=== PATIENT | male | born 1950 | race African-American/Black ===

== ENCOUNTER 2021-06-30 05:59 | Emergency (ER) | payer OTHER ==
--- NOTE | 2021-06-30 07:23 | RAD REPORT ---
EXAM DESCRIPTION: RAD - Chest Single View - 06/30/2021 7:03 am CLINICAL HISTORY: Tachycardia COMPARISON: Chest Pa And Lat (2 Views) dated 05/08/2020; Chest Single View dated 03/04/2016; CHEST PA AND LAT 2 VIEW dated 03/31/2011 FINDINGS: Lines: None. Lungs: No evidence of edema or pneumonia. Pleural: No significant pleural effusions or pneumothorax. Cardiac: Cardiomegaly. Atherosclerosis. Bones: No acute fractures. Other: IMPRESSION: No acute cardiopulmonary disease.
[2021-06-30] MEDS ORDERED: NA CHLORIDE 0.9% 1,000 ML ONE ×2 (07:46→09:52)
[2021-06-30] MEDS ORDERED: METOPROLOL TARTRATE 5 MG/5 ML INJ IV ONE (07:46)
[2021-06-30 07:50] LABS: Lymphocytes % 7.3 % (15.3-44.8); MPV 9.2 fL (7.6-11.3); RBC Red Blood Cell Count 3.15 M/uL (4.33-5.43)
[2021-06-30 07:59] LABS: Protime INR 1.01
[2021-06-30 08:42] LABS: Magnesium 1.6 mg/dL (1.8-2.4); Troponin (Emerg Dept Use Only) 0.03 ng/mL (0.0-0.045)
[2021-06-30 09:04] LABS: Albumin 3.7 g/dL (3.4-5.0); Bilirubin Direct 0.2 mg/dL (0-0.2); Bilirubin Total 0.4 mg/dL (0.2-1.0); Platelet Estimate ADEQ; Protein, Total 7.7 g/dL (6.4-8.2)
[2021-06-30 09:05] LABS: Blood Morphology Comment NOT SEEN (NOT SEEN)
[2021-06-30 09:08] LABS: Blood O2 Saturation 94.6 % (92-98.5)
[2021-06-30 09:10] LABS: Arterial Blood Carboxyhemoglob 0.3 % (0-1.5); Blood Gas Oxyhemoglobin 92.6 % (94-97)
[2021-06-30] MEDS ORDERED: ENOXAPARIN 80 MG/0.8 ML SQ ONE (09:52)
[2021-06-30] MEDS ORDERED: MAGNESIUM SULFATE 1 gm IVPB 1 GM/100 ML BAG IV ONE (09:52)
--- NOTE | 2021-06-30 09:57 | EDPHYS ---
Physician Documentation [facility] Name: Rell Tucker Jr Age: 71 yrs Sex: Male : 1950 Arrival Date: 06/30/2021 Time: 06:04 Bed 20 Private MD: ED Physician Mark Wen HPI: 06/30 06:59 This 71 yrs old Black Male presents to ER via EMS with complaints of Hypoglycemia. pm1 06:59 The patient or guardian reports hypoglycemia, that was potentially precipitated by not pm1 eating last night and took his metformin, Treatment prior to arrival includes: EMS administered D50, administered glucagon, checked blood sugar on arrival, which was 20, after treatment, the blood sugar was 159. Onset: The symptoms/episode began/occurred this morning. Associated signs and symptoms: Pertinent positives: None. Current symptoms: In the emergency department the patient's symptoms have resolved, the patient is alert and fully oriented, has normal speech, has normal responsiveness, has no confusion. The patient has not recently seen a physician, the patient's primary care provider is Dr. Dr. Zuluaga. Patient was watching the football games last night and drinking alcohol. Took his metformin and iron supplement last night. Did not eat dinner. EMS toned out for AMS. Found patient hypoglycemic on scene with finger stick 20. Oral glucose not effective, and then given 1 amp D50 and BS 159 post treatment. EMS reports heart rate between 70 to 170, no EKG in route. Historical: - Allergies: 06:30 No Known Allergies; bb - PMHx: 06:30 Diabetes mellitus; bb - Immunization history:: Adult Immunizations up to date. - Social history:: Smoking status: Patient denies any tobacco usage or history of. Patient/guardian denies using alcohol. ROS: 07:29 Constitutional: Negative for fever, chills, and weight loss, Cardiovascular: Negative pm1 for chest pain, palpitations, and edema, Respiratory: Negative for shortness of breath, cough, wheezing, and pleuritic chest pain, Abdomen/GI: Negative for abdominal pain, nausea, vomiting, diarrhea, and constipation, Back: Negative for injury and pain, MS/Extremity: Negative for injury and deformity, Skin: Negative for injury, rash, and discoloration, Neuro: Negative for headache, weakness, numbness, tingling, and seizure. 07:29 Eyes: Negative for injury, pain, redness, and discharge, ENT: Negative for injury, pain, and discharge. 07:29 All other systems are negative. Exam: 07:29 Constitutional: This is a well developed, well nourished patient who is awake, alert, pm1 and in no acute distress. Head/Face: Normocephalic, atraumatic. 07:29 Skin: Warm, dry with normal turgor. Normal color with no rashes, no lesions, and no evidence of cellulitis. MS/ Extremity: Pulses equal, no cyanosis. Neurovascular intact. Full, normal range of motion. 07:29 Eyes: Exam is negative for acute changes, Periorbital structures: appear normal, Pupils: no acute changes, Extraocular movements: no acute changes, Conjunctiva: no acute changes, no injection, Sclera: no acute changes, icterus, is not appreciated. 07:29 ENT: Exam is negative for acute changes, Mouth: no acute changes, Lips: normal, moist, Oral mucosa: normal, pink and intact, moist. 07:29 Cardiovascular: Rate: tachycardic, Rhythm: irregular, Pulses: no pulse deficits are appreciated, Heart sounds: normal, normal S1and S2, Edema: is not appreciated. 07:29 Respiratory: Exam negative for acute changes, the patient does not display signs of respiratory distress, Respirations: normal, Breath sounds: are clear throughout. 07:29 Abdomen/GI: Inspection: abdomen appears normal, Palpation: abdomen is soft and non-tender, in all quadrants. 07:29 Neuro: Exam negative for acute changes, Orientation: is normal, Mentation: is normal, Motor: is normal, moves all fours. Vital Signs: 07:30 BP 102 / 74; Pulse 150; Resp 15; Pulse Ox 99% on R/A; ww 07:45 BP 107 / 67; Pulse 153; Resp 15; Pulse Ox 98% on R/A; ww 08:15 BP 102 / 65; Pulse 92; Resp 18; Pulse Ox 100% on R/A; ww 08:45 BP 109 / 76; Pulse 89; Resp 19; Pulse Ox 99% on R/A; ww 09:00 BP 114 / 75; Pulse 88; Resp 22; Pulse Ox 100% on R/A; ww 10:00 BP 114 / 75; Pulse 88; Resp 22; Pulse Ox 100% on R/A; ww 10:30 BP 119 / 77; Pulse 86; Resp 22; Pulse Ox 99% on R/A; ww 11:30 BP 117 / 72; Pulse 86; Resp 24; Pulse Ox 98% on R/A; ww 12:30 BP 120 / 76; Pulse 98; Resp 16; Pulse Ox 96% on R/A; ww 13:00 BP 108 / 72; Pulse 91; Resp 23; Pulse Ox 96% on R/A; ww 13:17 Temp 98.2(O); dh3 14:00 BP 125 / 75; Pulse 92; Resp 27; Pulse Ox 95% on R/A; ww 15:00 BP 134 / 78; Pulse 90; Resp 24; Pulse Ox 95% on R/A; ww 16:00 BP 144 / 86; Pulse 95; Resp 22; Pulse Ox 94% on R/A; ww 18:37 BP 139 / 87; Pulse 95; Resp 27; Temp 99.2; Pulse Ox 98% on R/A; ww 19:45 BP 111 / 60; Pulse 92; Resp 22; Pulse Ox 94% on R/A; lp1 21:15 BP 108 / 62; Pulse 90; Resp 22; Temp 99.5(O); Pulse Ox 94% on R/A; lp1 MDM: 06:46 Patient medically screened. pm1 09:53 Data reviewed: vital signs. Data interpreted: Pulse oximetry: on room air is 95 %. pm1 Interpretation: normal. Counseling: I had a detailed discussion with the patient and/or guardian regarding: the historical points, exam findings, and any diagnostic results supporting the discharge/admit diagnosis, lab results, radiology results, the need for further work-up and treatment in the hospital. 10:15 Physician consultation: Jeffry Ray regarding admission, patient's condition, would pm1 like consultation with Dr. ARIANNA Morin, would like further tests performed, CT scan. 11:02 Physician consultation: Alvin Morin MD left message. pm1 11:48 Physician consultation: Alvin Morin MD left message. pm1 12:24 Physician consultation: Jeffry Ray after a discussion of the case, a recommendation pm1 for transfer for higher level of care is made, Sodium bicarbonate 2 amp IVP now, D5 + Sodium bicarbonate 2 amp at 125 mL for correction of pH. Repeat blood gases in a few hours. 12:57 ED course: Discussed repeat ABG with Attending, Dr. Morse. Patient improved with NS, pm1 1000 mL bolus and 125 mL/hr. Does not recommend patient get sodium bicarbonate 2 amp IVP or drip as recommended by Dr. Ray. 13:33 Physician consultation: MD Waldrop regarding regarding transfer, patient's condition, pm1 Will require ICU admission. Recommends Lactate, UDS, tylenol level, Bicarb drip. 16:43 ED course: No ICU capacity at [facility], [facility] system, [facility] system. pm1 Will continue to manage patient's acidosis until patient can be transferred or admitted. 17:42 Physician consultation: Prudence Haider MD regarding admission, Would like CPK and ABG pm1 prior to decision to admit versus transfer due to speciality, No GI available. 18:25 Physician consultation: MD Pressley regarding regarding transfer, to [facility]. and pm1 will see patient. 18:47 Physician consultation: Eliazar Rodas DO Informed him that the patient is not staying pm1 in the hospital here due to concerns for need of GI. He will follow-up with the patient upon discharge. 06/30 06:16 Order name: Basic Metabolic Panel; Complete Time: 09:17 pm1 06/30 06:16 Order name: CBC with Diff; Complete Time: 09:06 pm1 06/30 06:16 Order name: Hepatic Function; Complete Time: 09:17 pm1 06/30 06:16 Order name: Lipase; Complete Time: 09:17 pm1 06/30 06:47 Order name: Magnesium pm1 06/30 06:47 Order name: NT PRO-BNP; Complete Time: 08:49 pm1 06/30 06:47 Order name: PT-INR; Complete Time: 08:34 pm1 06/30 06:47 Order name: Troponin (emerg Dept Use Only); Complete Time: 08:49 pm1 06/30 06:48 Order name: Magnesium; Complete Time: 08:49 EDMS 06/30 06:54 Order name: Urine Drug Screen; Complete Time: 13:30 pm1 06/30 06:54 Order name: ETOH Level; Complete Time: 09:37 pm1 06/30 06:54 Order name: TSH; Complete Time: 10:31 pm1 06/30 06:55 Order name: ABG Arterial Blood Gas; Complete Time: 09:17 EDMS 06/30 07:40 Order name: Glucose, Ancillary Testing; Complete Time: 08:34 EDMS 06/30 09:04 Order name: Manual Differential; Complete Time: 09:06 EDMS 06/30 09:08 Order name: COVID-19/FLU A+B (Document "Date of Onset" if Symptomatic) pm1 06/30 09:08 Order name: COVID-19/FLU A+B; Complete Time: 10:45 EDMS 06/30 11:59 Order name: Urine Dipstick-Ancillary; Complete Time: 12:13 EDMS 06/30 12:17 Order name: BMP; Complete Time: 13:30 pm1 06/30 12:49 Order name: ABG; Complete Time: 13:30 pm1 06/30 13:32 Order name: Lactate; Complete Time: 16:25 pm1 06/30 13:55 Order name: Tylenol Level; Complete Time: 16:25 pm1 06/30 15:32 Order name: Glucose, Ancillary Testing; Complete Time: 15:42 EDMS 06/30 16:26 Order name: CMP; Complete Time: 17:07 pm1 06/30 16:45 Order name: Glucose, Ancillary Testing; Complete Time: 16:47 EDMS 06/30 16:54 Order name: ABG Arterial Blood Gas; Complete Time: 17:37 EDMS 06/30 17:42 Order name: CPK; Complete Time: 18:30 pm1 06/30 06:16 Order name: IV Saline Lock; Complete Time: 07:50 pm06/30 06:16 Order name: Labs collected and sent; Complete Time: 07:50 pm1 06/30 06:16 Order name: Diet Regular; Complete Time: 06:17 pm1 06/30 06:47 Order name: XRAY Chest (1 view); Complete Time: 08:34 pm1 06/30 06:47 Order name: EKG; Complete Time: 06:48 pm1 06/30 06:47 Order name: Cardiac monitoring; Complete Time: 07:12 pm1 06/30 06:47 Order name: EKG - Nurse/Tech; Complete Time: 07:12 pm1 06/30 06:47 Order name: IV Saline Lock; Complete Time: 07:12 pm06/30 06:47 Order name: Labs collected and sent; Complete Time: 07:50 pm06/30 06:47 Order name: O2 Per Protocol; Complete Time: 07:12 pm06/30 06:47 Order name: O2 Sat Monitoring; Complete Time: 07:12 pm06/30 06:53 Order name: Glucose Level; Complete Time: 07:50 pm06/30 06:54 Order name: Urine Dipstick-Ancillary (obtain specimen); Complete Time: 11:54 pm06/30 09:19 Order name: EKG - Nurse/Tech; Complete Time: 09:38 pm1 06/30 10:13 Order name: CT Abd/Pelvis - Without Contrast; Complete Time: 10:57 pm1 06/30 17:42 Order name: ABG; Complete Time: 18:11 pm1 06/30 21:26 Order name: Glucose, Ancillary Testing; Complete Time: 18:02 EDMS Administered Medications: 18:41 Discontinued: NS 0.9% 1000 ml IV at 125 ml/hr continuous ww 18:40 Discontinued: D5W 1000 ml, Sodium Bicarbonate 100 mEq IV at 125 ml/hr continuous ww 07:50 Drug: NS 0.9% 1000 ml Route: IV; Rate: 1000 ml; Site: left antecubital; ww 08:00 Drug: Lopressor (metoprolol) 5 mg Route: IVP; Site: left antecubital; ww 10:14 Drug: NS 0.9% 1000 ml Route: IV; Rate: 125 ml/hr; Site: left antecubital; ww 10:15 Drug: Magnesium Sulfate 1 grams Route: IVPB; Infused Over: 1 hrs; Site: left ww antecubital; 18:42 Follow up: Response: No adverse reaction; IV Status: Completed infusion ww 10:15 Not Given (Patient Refused; educated patient on medication, Logan barrera): Lovenox ww (enoxaparin) 1 mg/kg Sub-Q once 11:25 Drug: Lovenox (enoxaparin) 70 mg Route: Sub-Q; Site: right upper abdomen; ww 18:41 Follow up: Response: No adverse reaction ww 13:18 Not Given (KESHIA Ford verbally cancelled orderr): Sodium Bicarbonate 2 amp IVP once; ww (100 mL); equals 100 mEq 13:18 Not Given (Logan [employer] verbally cancelled orderr): D5W 1000 ml, Sodium Bicarbonate 100 ww mEq IV at 125 ml/hr continuous 14:30 Drug: D5W 1000 ml, Sodium Bicarbonate 100 mEq Route: IV; Rate: 125 ml/hr; Site: left ww antecubital; 15:30 Drug: Sodium Bicarbonate 50 mEq Route: IVP; Site: left antecubital; ww 18:41 Follow up: Response: No adverse reaction ww 15:35 Drug: Zofran (Ondansetron) 4 mg Route: IVP; Site: left antecubital; ww 18:41 Follow up: Response: No adverse reaction ww 15:46 Drug: D50W 50 ml Route: IVP; Site: left antecubital; ww 18:41 Follow up: Response: No adverse reaction ww 18:00 Drug: D5-1/2 NS 1000 ml Route: IV; Rate: 125 ml/hr; Site: left antecubital; ww 21:10 Follow up: IV Status: Infusion continued upon transfer lp1 Disposition: 22:29 Co-signature as Attending Physician, Mark Wen MD. 7 Disposition Summary: 06/30/21 12:28 Transfer Ordered Transfer Location: Other Acute Care Facility pm1 Reason: Higher level of care pm1 Condition: Stable(06/30/21 12:28) pm1 Problem: new(06/30/21 12:28) pm1 Symptoms: have improved(06/30/21 12:28) pm1 Accepting Physician: Wendie LIGHT(06/30/21 21:28) lp1 Diagnosis - Hypoglycemia, unspecified(06/30/21 12:28) pm1 - Abnormal results of liver function studies pm1 - Unspecified atrial fibrillation - new onset(06/30/21 12:28) pm1 - Lactic Acidosis pm1 - Dehydration pm1 Forms: - Medication Reconciliation Form pm1 - SBAR form pm1 Signatures: Dispatcher [employer] Tatianna Brewster RN RN Phyllis Andersen RN RN 1 Logan Modi NP [employer] 1 Mark Wen MD [facility] Venecia Friedman RN RN ww Corrections: (The following items were deleted from the chart) 10:34 10:13 Abdomen Pelvis W Con+CT.RAD.BRZ ordered. EDMS EDMS 11:54 06:55 Arterial Blood Gas+RC.LAB.BRZ ordered. EDMS EDMS 12:26 09:57 Inpatient Admission pm1 pm1 12:26 09:57 Jeffry Ray pm1 pm1 12:26 09:57 Telemetry/MedSurg (Inpatient) pm1 pm1 12:26 09:57 Stable pm1 pm1 12:26 09:57 new pm1 pm1 12:26 09:57 have improved pm1 pm1 12:26 09:57 Standard pm1 pm1 12:26 09:57 pm1 pm1 12:26 09:57 Hypoglycemia, unspecified pm1 pm1 12:26 09:57 Dehydration pm1 pm1 12:26 09:57 Unspecified atrial fibrillation - new onset pm1 pm1 15:12 07:00 CORONAVIRUS+MR.LAB.BRZ ordered. EDMS EDMS 17:04 16:26 Arterial Blood Gas+RC.LAB.BRZ ordered. EDMS EDMS 18:28 12:28 pm1 pm1 18:29 18:25 Physician consultation: MD Waldrop regarding regarding transfer, to [facility]. pm1 and will see patient pm1 21:28 18:28 Wendie LIGHT pm1 lp1
--- NOTE | 2021-06-30 09:57 | ER ---
Nurse's Notes [facility] Name: Rell Tucker Jr Age: 71 yrs Sex: Male : 1950 Arrival Date: 06/30/2021 Time: 06:04 Bed 20 Private MD: Diagnosis: Hypoglycemia, unspecified;Abnormal results of liver function studies;Unspecified atrial fibrillation-new onset;Lactic Acidosis;Dehydration Presentation: 06/30 06:10 Chief complaint: EMS states: they were called out for pt with AMS pt BGL was 20 he was bb given oral glucose x 2 BGL 25 D5 was given and BGL went to 159 pt became responsive. Coronavirus screen: At this time, the client does not indicate any symptoms associated with coronavirus-19. Ebola Screen: No symptoms or risks identified at this time. Initial Sepsis Screen: Does the patient meet any 2 criteria? No. Patient's initial sepsis screen is negative. Does the patient have a suspected source of infection? No. Patient's initial sepsis screen is negative. Risk Assessment: Do you want to hurt yourself or someone else? Patient reports no desire to harm self or others. Onset of symptoms was June 30, 2021. 06:10 Method Of Arrival: EMS: [facility] bb 06:10 Acuity: KATELYNN 2 bb Historical: - Allergies: 06:30 No Known Allergies; bb - PMHx: 06:30 Diabetes mellitus; bb - Immunization history:: Adult Immunizations up to date. - Social history:: Smoking status: Patient denies any tobacco usage or history of. Patient/guardian denies using alcohol. Screenin:20 Abuse screen: Denies threats or abuse. Denies injuries from another. Nutritional ww screening: No deficits noted. Tuberculosis screening: No symptoms or risk factors identified. Fall Risk Fall in past 12 months (25 points). No secondary diagnosis (0 pts). IV access (20 points). Ambulatory Aid- Furniture (30 pts.). Gait- Normal/Bed Rest/Wheelchair (0 pts) Mental Status- Oriented to own ability (0 pts). Total Sweet Fall Scale indicates High Risk Score (45 or more points). Fall prevention measures have been instituted. Side Rails Up X 2 Placed Close to Nursing Station Family Present and informed to notify staff if the need to leave the bedside. Assessment: 07:20 General: Appears in no apparent distress. well developed, Behavior is calm, ww cooperative, appropriate for age. Pain: Denies pain. Neuro: Level of Consciousness is awake, alert, obeys commands, Oriented to person, place, time, situation, Appropriate for age Speech is normal. Cardiovascular: Denies chest pain, Capillary refill < 3 seconds fingers Rhythm is atrial fibrillation with rapid ventricular response Chest pain is denied. Respiratory: Airway is patent Respiratory effort is even, unlabored, Respiratory pattern is regular, symmetrical. GI: Abdomen is non-distended, Abd is soft and non tender Reports dark stool but believes it is due to his iron pills. Has recently been seen by GI for an ulcer. : No deficits noted. No signs and/or symptoms were reported regarding the genitourinary system. EENT: No deficits noted. No signs and/or symptoms were reported regarding the EENT system. Derm: No deficits noted. No signs and/or symptoms reported regarding the dermatologic system. Skin is intact, is healthy with good turgor, Skin is pink, warm \\T\\ dry. Musculoskeletal: No deficits noted. No signs and/or symptoms reported regarding the musculoskeletal system. 08:30 Reassessment: Patient appears in no apparent distress at this time. No changes from previously documented assessment. Patient and/or family updated on plan of care and expected duration. Pain level reassessed. Patient is alert, oriented x 3, equal unlabored respirations, skin warm/dry/pink. 09:30 Reassessment: Patient appears in no apparent distress at this time. No changes from previously documented assessment. Patient and/or family updated on plan of care and expected duration. Pain level reassessed. Patient is alert, oriented x 3, equal unlabored respirations, skin warm/dry/pink. Patient states feeling better. 10:30 Reassessment: Patient appears in no apparent distress at this time. No changes from previously documented assessment. Patient and/or family updated on plan of care and expected duration. Pain level reassessed. Patient is alert, oriented x 3, equal unlabored respirations, skin warm/dry/pink. 11:40 Reassessment: Patient appears in no apparent distress at this time. No changes from previously documented assessment. Patient and/or family updated on plan of care and expected duration. Pain level reassessed. Patient is alert, oriented x 3, equal unlabored respirations, skin warm/dry/pink. assisted to bathroom. 12:22 Reassessment: Patient appears in no apparent distress at this time. No changes from ww previously documented assessment. Patient and/or family updated on plan of care and expected duration. Pain level reassessed. Patient is alert, oriented x 3, equal unlabored respirations, skin warm/dry/pink. 13:19 Reassessment: Patient and/or family updated on plan of care and expected duration. Pain ww level reassessed. Patient vomited. Changed linens and cleaned up patient. KESHIA Ford notified. Warm blankets applied. . 14:30 Reassessment: Patient appears in no apparent distress at this time. No changes from ww previously documented assessment. Patient and/or family updated on plan of care and expected duration. Pain level reassessed. Patient is alert, oriented x 3, equal unlabored respirations, skin warm/dry/pink. 15:25 Reassessment: Patient appears in no apparent distress at this time. No changes from ww previously documented assessment. Patient and/or family updated on plan of care and expected duration. Pain level reassessed. Patient is alert, oriented x 3, equal unlabored respirations, skin warm/dry/pink. 16:38 Reassessment: Patient appears in no apparent distress at this time. No changes from ww previously documented assessment. Patient and/or family updated on plan of care and expected duration. Pain level reassessed. Patient is alert, oriented x 3, equal unlabored respirations, skin warm/dry/pink. 17:49 Reassessment: Patient appears in no apparent distress at this time. No changes from ww previously documented assessment. 18:01 Reassessment: Patient appears in no apparent distress at this time. No changes from ww previously documented assessment. Patient and/or family updated on plan of care and expected duration. Pain level reassessed. Patient is alert, oriented x 3, equal unlabored respirations, skin warm/dry/pink. spouse at bedside, answered and addressed all questions and concerns. . 19:45 Reassessment: Patient appears in no apparent distress at this time. Patient is alert, lp1 oriented x 3, equal unlabored respirations, skin warm/dry/pink. Patient aware of pending transfer; at bedside. 21:17 Reassessment: Called for nurse to nurse report, transfer center reports nurse unable to lp1 take report at this time. 22:00 Reassessment: Attempted to call report to [facility] for patient report; placed on lp1 hold by transfer center. 22:15 Reassessment: Report given to DACIA Humphries for patient report, notified of patient leaving lp1 facility at 2120. Vital Signs: 07:30 BP 102 / 74; Pulse 150; Resp 15; Pulse Ox 99% on R/A; ww 07:45 BP 107 / 67; Pulse 153; Resp 15; Pulse Ox 98% on R/A; ww 08:15 BP 102 / 65; Pulse 92; Resp 18; Pulse Ox 100% on R/A; ww 08:45 BP 109 / 76; Pulse 89; Resp 19; Pulse Ox 99% on R/A; ww 09:00 BP 114 / 75; Pulse 88; Resp 22; Pulse Ox 100% on R/A; ww 10:00 BP 114 / 75; Pulse 88; Resp 22; Pulse Ox 100% on R/A; ww 10:30 BP 119 / 77; Pulse 86; Resp 22; Pulse Ox 99% on R/A; ww 11:30 BP 117 / 72; Pulse 86; Resp 24; Pulse Ox 98% on R/A; ww 12:30 BP 120 / 76; Pulse 98; Resp 16; Pulse Ox 96% on R/A; ww 13:00 BP 108 / 72; Pulse 91; Resp 23; Pulse Ox 96% on R/A; ww 13:17 Temp 98.2(O); dh3 14:00 BP 125 / 75; Pulse 92; Resp 27; Pulse Ox 95% on R/A; ww 15:00 BP 134 / 78; Pulse 90; Resp 24; Pulse Ox 95% on R/A; ww 16:00 BP 144 / 86; Pulse 95; Resp 22; Pulse Ox 94% on R/A; ww 18:37 BP 139 / 87; Pulse 95; Resp 27; Temp 99.2; Pulse Ox 98% on R/A; ww 19:45 BP 111 / 60; Pulse 92; Resp 22; Pulse Ox 94% on R/A; lp1 21:15 BP 108 / 62; Pulse 90; Resp 22; Temp 99.5(O); Pulse Ox 94% on R/A; lp1 ED Course: 06:04 Patient arrived in ED. mw2 06:10 Arm band placed on pt waiting on EMS stretcher. bb 06:11 Logan Modi NP is PHCP. pm1 06:11 Mark Wen MD is Attending Physician. pm1 06:30 Triage completed. bb 06:59 XRAY Chest (1 view) In Process Unspecified. EDMS 07:20 Patient has correct armband on for positive identification. Fall risk band placed. ww Placed in gown. Bed in low position. Call light in reach. Side rails up X2. Adult w/ patient. quill layer on. Pulse ox on. NIBP on. Door closed. Warm blanket given. 07:20 Initial lab(s) drawn, by me, sent to lab. EKG done, by ED staff, reviewed by Logan Modi NP. Inserted saline lock: 18 gauge in right antecubital area, using aseptic technique. Blood collected. Maintain EMS IV. Dressing intact. Good blood return noted. Site clean \\T\\ dry. Gauge \\T\\ site: 20g left ac. 07:37 Venecia Friedman, DACIA is Primary Nurse. ww 07:50 Magnesium Sent. ww 09:30 EKG done, by ED staff, reviewed by Logan Modi NP. dh3 09:46 COVID-19/FLU A+B (Document "Date of Onset" if Symptomatic) Sent. ww 09:55 Jeffry Ray is Hospitalizing Provider. pm1 10:36 CT Abd/Pelvis - Without Contrast In Process Unspecified. EDMS 13:11 initiated a transfer with Cruz Muñoz from the [facility]/. eb 13:[address] Berumen the hospitalist production consultant for [facility] with Logan Schmitt for eb patient transfer consultation. Dr. Berumen recommends the patient go to ICU / patient placed on a waiting list. 14:37 initiated a transfer with Judith Olguin from the [facility]. eb 14:40 per Judith they will have to decline the patient in transfer due to being ICU Capacity. eb 14:47 initiated a transfer with Cathryn from the [facility] Transfer [facility]. eb 14:51 Per Cathryn at the [facility] Transfer [facility] they will have to decline the patient in transfer eb due to being at capacity at all four campuses. 15:04 initiated a transfer with Kalie from the [facility] Transfer Center. eb 15:15 per Kalie all [facility] Campuses including the [facility] are at capacity and will have eb to decline the patient in transfer. 15:24 initiated a transfer with Venecia from the [facility]. eb 15:[address] Bolaños the energy analyst production consultant for [facility] with Logan Schmitt for eb patient transfer consultation. 15:46 per Venecia from the [facility] patient has been denied due to eb being at capacity no IMU beds. 18:[address] Berumen the hospitalist production consultant for [facility] again with Logan Schmitt eb for patient transfer consultation in attempt to transfer the patient. 19:12 Primary Nurse role handed off by Venecia Friedman RN eb 20:23 administrative approval given by Sofia Miles/ patient has been accepted to [address] [place] 1454/Dr. Berumen accepted the patient in transfer/ report to be called to [phone]. 21:16 No provider procedures requiring assistance completed. Patient transferred, IV remains lp1 in place. Administered Medications: 18:41 Discontinued: NS 0.9% 1000 ml IV at 125 ml/hr continuous ww 18:40 Discontinued: D5W 1000 ml, Sodium Bicarbonate 100 mEq IV at 125 ml/hr continuous ww 07:50 Drug: NS 0.9% 1000 ml Route: IV; Rate: 1000 ml; Site: left antecubital; ww 08:00 Drug: Lopressor (metoprolol) 5 mg Route: IVP; Site: left antecubital; ww 10:14 Drug: NS 0.9% 1000 ml Route: IV; Rate: 125 ml/hr; Site: left antecubital; ww 10:15 Drug: Magnesium Sulfate 1 grams Route: IVPB; Infused Over: 1 hrs; Site: left ww antecubital; 18:42 Follow up: Response: No adverse reaction; IV Status: Completed infusion ww 10:15 Not Given (Patient Refused; educated patient on medication, Logan barrera): Lovenox ww (enoxaparin) 1 mg/kg Sub-Q once 11:25 Drug: Lovenox (enoxaparin) 70 mg Route: Sub-Q; Site: right upper abdomen; ww 18:41 Follow up: Response: No adverse reaction ww 13:18 Not Given (KESHIA Ford verbally cancelled orderr): Sodium Bicarbonate 2 amp IVP once; ww (100 mL); equals 100 mEq 13:18 Not Given (Logan SCHMITT verbally cancelled orderr): D5W 1000 ml, Sodium Bicarbonate 100 ww mEq IV at 125 ml/hr continuous 14:30 Drug: D5W 1000 ml, Sodium Bicarbonate 100 mEq Route: IV; Rate: 125 ml/hr; Site: left ww antecubital; 15:30 Drug: Sodium Bicarbonate 50 mEq Route: IVP; Site: left antecubital; ww 18:41 Follow up: Response: No adverse reaction ww 15:35 Drug: Zofran (Ondansetron) 4 mg Route: IVP; Site: left antecubital; ww 18:41 Follow up: Response: No adverse reaction ww 15:46 Drug: D50W 50 ml Route: IVP; Site: left antecubital; ww 18:41 Follow up: Response: No adverse reaction ww 18:00 Drug: D5-1/2 NS 1000 ml Route: IV; Rate: 125 ml/hr; Site: left antecubital; ww 21:10 Follow up: IV Status: Infusion continued upon transfer lp1 Outcome: 09:57 Decision to Hospitalize by Provider. pm1 12:28 ER care complete, transfer ordered by MD. pm1 21:17 Transferred by ground EMS to [facility], Transfer form completed. lp1 X-rays sent w/ patient. 21:17 Condition: stable 21:17 Instructed on the need for transfer. 21:28 Patient left the ED. lp1 Signatures: Dispatcher [employer] EDMS Tatianna Marte, RN RN Phyllis Borges RN RN lp1 Logan Modi NP SUPERVISOR MIXING pm1 Genesis Hua 3 Juana Pozo 2 Jessi Cortes Whitney RN RN ww Corrections: (The following items were deleted from the chart) 21:17 21:15 Reassessment: Patient appears in no apparent distress at this time. Patient is lp1 alert, oriented x 3, equal unlabored respirations, skin warm/dry/pink. Patient aware of pending transfer; at bedside lp1
[2021-06-30 10:43] LABS: SARS-COV-2 RT PCR NEGATIVE (NEGATIVE)
--- NOTE | 2021-06-30 10:55 | RAD REPORT ---
EXAM DESCRIPTION: CTAbdomen Pelvis Wo Contrast - 06/30/2021 10:36 am CLINICAL HISTORY: Elevated liver enzymes COMPARISON: Abdomen Pelvis W Contrast dated 05/08/2020 TECHNIQUE: CT of the abdomen and pelvis was performed. All CT scans are performed using dose optimization technique as appropriate and may include automated exposure control or mA/KV adjustment according to patient size. FINDINGS: Lower chest: Left lower lobe consolidative airspace disease. Multi-vessel coronary artery disease. Cardiomegaly. Liver: No acute abnormality or suspicious lesions. Biliary: No biliary ductal dilatation. Stomach: No significant focal abnormality. Duodenum: No significant focal abnormality. Pancreas: No significant abnormality. Spleen: No significant abnormality. Adrenal: No suspicious lesions. Kidney/ureter: No hydronephrosis. No renal calculi. Left upper pole renal cysts. Retroperitoneum: No retroperitoneal adenopathy. Vascular: No aneurysm. Bowel: Wall thickening of the ascending and proximal transverse colon.. Normal appendix. Peritoneum: Trace fluid in the right inguinal canal. Bladder: Grossly unremarkable. Reproductive: No adnexal masses. Bones: No acute fracture. Other: n/a IMPRESSION: Left basilar airspace disease concerning for pneumonia. Ascending and proximal transverse colonic wall thickening could reflect colitis.
[2021-06-30 12:00] LABS: Urine Blood 2+ (Negative); Urine Glucose Negative (Negative); Urine Protein Negative (Negative)
[2021-06-30 12:18] LABS: Barbiturates NEGATIVE (NEGATIVE); Benzodiazepines NEGATIVE (NEGATIVE); Cocaine NEGATIVE (NEGATIVE); METHAMPHETAM NEGATIVE (NEGATIVE); Methadone NEGATIVE (NEGATIVE); Opiates NEGATIVE (NEGATIVE); Phencyclidine NEGATIVE (NEGATIVE); THC Cannibis NEGATIVE (NEGATIVE)
[2021-06-30 13:02] LABS: Potassium 4.2 mmol/L (3.5-5.1)
[2021-06-30] MEDS ORDERED: SODIUM BICARB 50 MEQ/50ML VIAL ONE (13:02)
[2021-06-30 13:11] LABS: Arterial Blood Carboxyhemoglob 0.6 % (0-1.5); Blood Gas Oxyhemoglobin 91.5 % (94-97); Blood O2 Saturation 93.8 % (92-98.5)
[2021-06-30] MEDS ORDERED: D5W 1,000 ML with NA BICARB 8.4% 100 MEQ IV SCH ×2 (14:00)
[2021-06-30] MEDS ORDERED: ONDANSETRON 4 MG/2 ML VIAL ONE (15:23)
[2021-06-30] MEDS ORDERED: D50W 25 GM/50 ML SYRINGE IV ONE (15:30)
[2021-06-30 17:03] LABS: Bilirubin Total 0.3 mg/dL (0.2-1.0); Potassium 4.4 mmol/L (3.5-5.1); Protein, Total 6.4 g/dL (6.4-8.2)
[2021-06-30 17:08] LABS: Blood O2 Saturation 32.3 % (92-98.5)
[2021-06-30 17:11] LABS: Blood Gas Oxyhemoglobin 31.6 % (94-97)
[2021-06-30 17:13] LABS: Arterial Blood Carboxyhemoglob 0.7 % (0-1.5)
[2021-06-30] MEDS ORDERED: D5 0.45 NS 1,000 ML IV ONE (17:47)
[2021-06-30 18:08] LABS: Arterial Blood Carboxyhemoglob 1.2 % (0-1.5); Blood Gas Oxyhemoglobin 86.3 % (94-97); Blood O2 Saturation 88.9 % (92-98.5)
--- NOTE | 2021-06-30 18:44 | P.PN ---
Date of Service: 06/30/21 Medications Sodium Bicarbonate 100 meq/ (Dextrose/Water) 1,100 mls @ 125 mls/hr IV .[id number] [facility] Lab Results (last 24 hrs) 06/30/21 17:58: pH 7.47 H, pCO2 28.1 L, pO2 55.9 L, HCO3 20.3 L, Base Excess - 2.8, Oxyhemoglobin 86.3 L, ABG O2 Sat (Measured) 88.9 L, ABG Carboxyhemoglobin 1.2, ABG Methemoglobin 1.7 H, Other Total Hgb 8.6 L, Inspired O2 21.0 06/30/21 16:54: pH 7.37, pCO2 34.8 L, pO2 22.3 L, HCO3 19.7 L, Base Excess -4.6, Oxyhemoglobin 31.6 L, ABG O2 Sat (Measured) 32.3 L, ABG Carboxyhemoglobin 0.7, ABG Methemoglobin 1.6 H, Other Total Hgb 8.8 L, Inspired O2 21.0 06/30/21 16:36: Creatine Kinase 524 H 06/30/21 16:36: Sodium 140, Potassium 4.4, Chloride 108 H, Carbon Dioxide 18 L D, BUN 63 H, Creatinine 3.18 H, Estimated GFR 23 L, Glucose 160 H, Calcium 8.5, Total Bilirubin 0.3, AST 672 H* D, ALT 402 H* D, Alkaline Phosphatase 97, Serum Total Protein 6.4, Albumin 3.0 L, Globulin 3.4 D, Albumin/Globulin Ratio 0.9 L 06/30/21 16:33: POC Glucose 147 H 06/30/21 16:26: pH Cancelled, pCO2 Cancelled, pO2 Cancelled, HCO3 Cancelled, Base Excess Cancelled, Oxyhemoglobin Cancelled, ABG O2 Sat (Measured) Cancelled, ABG Carboxyhemoglobin Cancelled, ABG Methemoglobin Cancelled, Other Total Hgb Cancelled, Inspired O2 Cancelled 06/30/21 15:32: Acetaminophen < 2.0 L 06/30/21 15:32: Lactic Acid 7.2 H* 06/30/21 15:20: POC Glucose 67 06/30/21 12:51: pH 7.20 L, pCO2 20.1 L, pO2 88.1, HCO3 7.5 L, Base Excess -19.1, Oxyhemoglobin 91.5 L, ABG O2 Sat (Measured) 93.8, ABG Carboxyhemoglobin 0.6, ABG Methemoglobin 1.9 H, Other Total Hgb 8.5 L, Inspired O2 21.0 06/30/21 12:28: Sodium 141, Potassium 4.2, Chloride 109 H, Carbon Dioxide 11 L*, BUN 62 H, Creatinine 3.22 H, Estimated GFR 23 L, Glucose 59 L, Calcium 8.8 06/30/21 11:57: Urine pH 5.0, Ur Specific [place] 1.020, Glucose (UA)(Auto) Negative, Urine Ketones Negative, Urine Blood 2+ H, Urine Nitrite Negative, Ur Leukocyte Esterase Negative, Urine Total Protein Negative 06/30/21 11:50: Opiates Screen Negative, Methadone Screen Negative, Ur Barbiturates Screen Negative, Ur Phencyclidine Scrn Negative, Amphetamines Screen Negative, Benzodiazepines Screen Negative, Cocaine Screen Negative, Ur THC Screen Negative 06/30/21 09:12: Influenza Type A RNA Negative, Influenza Type B RNA Negative, SARS-CoV-2 RNA (RT-PCR) Negative 06/30/21 07:45: pH 7.04 L, pCO2 22.9 L, pO2 120.0 H, HCO3 5.9 L, Base Excess - 22.7, Oxyhemoglobin 92.6 L, ABG O2 Sat (Measured) 94.6, ABG Carboxyhemoglobin 0.3, ABG Methemoglobin 1.8 H, Other Total Hgb 8.7 L, Inspired O2 21.0 06/30/21 07:30: TSH 0.550 06/30/21 07:30: Plasma/Serum Alcohol 93 H 06/30/21 07:30: PT 11.6, INR 1.01 06/30/21 07:30: Magnesium 1.6 L, Rapid Troponin I 0.03, NT-Pro-B Natriuret Pep 781 H 06/30/21 07:30: WBC 13.90 H, RBC 3.15 L, Hgb 8.9 L, Hct 30.0 L, MCV 95.2 D, MCH 28.4, MCHC 29.8 L, RDW 15.9 H, Plt Count 249, MPV 9.2, Neutrophils % 88.5 H, Lymphocytes % 7.3 L, Monocytes % 3.9, Eosinophils % 0.0, Basophils % 0.3, Absolute Neutrophils 12.3 H, Segmented Neutrophils 80, Band Neutrophils 1, Abso lute Lymphocytes 1.0, Lymphocytes 15, Monocytes 4, Absolute Monocytes 0.5, Absolute Eosinophils 0.0, Absolute Basophils 0.0, Platelet Estimate Adeq, Morphology Comment Not seen 06/30/21 07:30: Sodium 139, Potassium 4.0, Chloride 107, Carbon Dioxide 8 L*, BUN 62 H, Creatinine 3.20 H, Estimated GFR 23 L, Glucose 111 H, Calcium 9.1, Total Bilirubin 0.4, Direct Bilirubin 0.2, AST 1191 H*, ALT 512 H*, Alkaline Phosphatase 119 H, Serum Total Protein 7.7, Albumin 3.7, Globulin 4.0 H, Albumin/Globulin Ratio 0.9 L, Lipase 268 06/30/21 07:29: POC Glucose 111 Assessment/ Plan: The patient presented to the ER with hypoglycemia and acidosis. He was found to have acute hepatitis and JIN of unclear etiology. The patient's hypoglycemia and acidosis was corrected in the ER. The patient will be transferred to [facility] for a GI evaluation. The case was reviewed with Logan Modi NP.
[2021-06-30 22:20] VITALS: BP 108/62; TEMP 99.5; O2SAT 94
== END 2021-06-30 21:28 ==
LOC: ER 05:59
DX: E11.649 Type 2 diabetes mellitus with hypoglycemia without coma (principal); I48.91 Unspecified atrial fibrillation; E86.0 Dehydration; R94.5 Abnormal results of liver function studies; Z20.822 Contact with and (suspected) exposure to COVID-19
CPT/HCPCS: 96365; 96361; 93005 ×3; 85025; 80048 ×2; 36415; 80320; 83735; 82550; 80329; 85610; 82947 ×4; 80076; 83605; 84443; 81003; 84484; 83690; 80053; 83880; 0240U; 80307; 74176; 71045; 82805 ×4; 96375; 96372; 99285; 96366; J3475; J7799; J7030 ×2; J2405

== ENCOUNTER 2022-05-21 09:35 | Day surgery (SDC) | payer OTHER ==
[2022-05-21 09:53] VITALS: BP 122/67; TEMP 98.5; O2SAT 100; BMI 23.6
[2022-05-21 10:05] LABS: Hematocrit 28.1 % (39.6-49.0)
[2022-05-21] MEDS ORDERED: EPOETIN ALFA-EPBX 10,000 UNIT/ML VIAL ONE (10:10)
[2022-05-21 10:47] LABS: Ferritin 146.5 ng/mL (26-388); Folic Acid, (Folate) 9.6 ng/mL (3.1-17.5)
== END 2022-05-21 10:36 | disposition home or self-care (01) ==
LOC: DS 09:35
PROVIDERS: ATTEND Internal Medicine Nephrology
DX: N18.9 Chronic kidney disease, unspecified (principal); D63.1 Anemia in chronic kidney disease
CPT/HCPCS: 36415; 85018; 85014; 82728; 82746; 82607; 83540; 84466; 96372; Q5106

== ENCOUNTER 2022-06-19 09:16 | Day surgery (SDC) | payer OTHER ==
[2022-06-19 09:37] VITALS: BP 124/82; TEMP 97.9; O2SAT 99; BMI 24.2
[2022-06-19 09:46] LABS: Hematocrit 28.9 % (39.6-49.0)
[2022-06-19] MEDS ORDERED: EPOETIN ALFA-EPBX 10,000 UNIT/ML VIAL ONE (09:57)
== END 2022-06-19 10:05 | disposition home or self-care (01) ==
LOC: DS 09:16
PROVIDERS: ATTEND Internal Medicine Nephrology
DX: D63.1 Anemia in chronic kidney disease (principal); N18.9 Chronic kidney disease, unspecified
CPT/HCPCS: 36415; 85018; 85014; 96372; Q5106

== ENCOUNTER 2022-07-17 09:03 | Day surgery (SDC) | payer OTHER ==
[2022-07-17 09:15] VITALS: BP 133/72; TEMP 97.8; O2SAT 100; BMI 24.3
[2022-07-17 09:41] LABS: Hematocrit 28.4 % (39.6-49.0)
[2022-07-17] MEDS ORDERED: EPOETIN ALFA-EPBX 10,000 UNIT/ML VIAL ONE (09:49)
== END 2022-07-17 09:55 | disposition home or self-care (01) ==
LOC: DS 09:03
PROVIDERS: ATTEND Internal Medicine Nephrology
DX: N18.9 Chronic kidney disease, unspecified (principal); D63.1 Anemia in chronic kidney disease
CPT/HCPCS: 36415; 85018; 85014; 96372; Q5106

== ENCOUNTER 2022-08-14 09:00 | Day surgery (SDC) | payer OTHER ==
[2022-08-14 09:27] LABS: Hematocrit 27.7 % (39.6-49.0)
[2022-08-14] MEDS ORDERED: EPOETIN ALFA-EPBX 10,000 UNIT/ML VIAL ONE (09:47)
[2022-08-14 10:00] VITALS: BP 118/73; TEMP 98.4; O2SAT 98; BMI 25.5
== END 2022-08-14 09:53 | disposition home or self-care (01) ==
LOC: DS 09:00
PROVIDERS: ATTEND Internal Medicine Nephrology
DX: N18.9 Chronic kidney disease, unspecified (principal); D63.1 Anemia in chronic kidney disease
CPT/HCPCS: 36415; 85018; 85014; 96372; Q5106

== ENCOUNTER 2022-09-11 07:39 | Day surgery (SDC) | payer OTHER ==
[2022-09-11 08:15] LABS: Hematocrit 27.3 % (39.6-49.0)
[2022-09-11 08:17] VITALS: BP 148/76; TEMP 97.7; O2SAT 100; BMI 24.9
[2022-09-11] MEDS ORDERED: EPOETIN ALFA-EPBX 10,000 UNIT/ML VIAL ONE (08:30)
== END 2022-09-11 08:31 | disposition home or self-care (01) ==
LOC: DS 07:39
PROVIDERS: ATTEND Internal Medicine Nephrology
DX: N18.9 Chronic kidney disease, unspecified (principal); D63.1 Anemia in chronic kidney disease
CPT/HCPCS: 36415; 82947; 85014; 85018; 96372; Q5106

== ENCOUNTER 2022-12-15 09:36 | Day surgery (SDC) | payer OTHER ==
[2022-12-15 10:01] VITALS: BP 138/73; TEMP 98; O2SAT 100; BMI 25.1
[2022-12-15 10:18] LABS: Hematocrit 29.3 % (39.6-49.0)
[2022-12-15] MEDS ORDERED: EPOETIN ALFA-EPBX 10,000 UNIT/ML VIAL ONE (10:46)
[2022-12-15 10:58] LABS: Ferritin 131.1 ng/mL (26-388)
== END 2022-12-15 10:42 | disposition home or self-care (01) ==
LOC: DS 09:36
PROVIDERS: ATTEND Internal Medicine Nephrology
DX: N18.9 Chronic kidney disease, unspecified (principal); D63.1 Anemia in chronic kidney disease
CPT/HCPCS: 36415; 85018; 85014; 82728; 82607; 83540; 84466; 96372; Q5106

== ENCOUNTER 2023-02-16 06:58 | Day surgery (SDC) | payer OTHER ==
[2023-02-16 07:25] VITALS: BP 118/76; TEMP 98.1; O2SAT 0; BMI 27.1
[2023-02-16 07:35] LABS: Hematocrit 29.2 % (39.6-49.0)
[2023-02-16] MEDS ORDERED: EPOETIN ALFA-EPBX 10,000 UNIT/ML VIAL ONE (08:11)
== END 2023-02-16 08:15 | disposition home or self-care (01) ==
LOC: DS 06:58
PROVIDERS: ATTEND Internal Medicine Nephrology
DX: N18.9 Chronic kidney disease, unspecified (principal); D63.1 Anemia in chronic kidney disease
CPT/HCPCS: 36415; 85018; 85014; 96372; Q5106

== ENCOUNTER 2023-05-11 08:20 | Day surgery (SDC) | payer OTHER ==
[2023-05-11 09:04] VITALS: BP 114/67; TEMP 97.3; O2SAT 100; BMI 25.8
[2023-05-11] MEDS ORDERED: EPOETIN ALFA-EPBX 10,000 UNIT/ML VIAL ONE (09:20)
== END 2023-05-11 09:27 | disposition home or self-care (01) ==
LOC: DS 08:20
PROVIDERS: ATTEND Internal Medicine Nephrology
DX: N18.4 Chronic kidney disease, stage 4 (severe) (principal); D63.1 Anemia in chronic kidney disease
CPT/HCPCS: 36415; 85018; 85014; 96372; Q5106

== ENCOUNTER 2023-06-04 07:45 | Day surgery (SDC) | payer OTHER ==
[2023-06-04 09:21] LABS: Hematocrit 28.1 % (39.6-49.0)
[2023-06-04 09:41] LABS: Folic Acid, (Folate) > 20.0 ng/mL (3.1-17.5); Transferrin 170 mg/dL (200-360)
[2023-06-04] MEDS ORDERED: EPOETIN ALFA-EPBX 10,000 UNIT/ML VIAL ONE (09:48)
[2023-06-04 10:38] VITALS: BP 114/67; TEMP 97.9; O2SAT 100; BMI 25.4
== END 2023-06-04 09:52 | disposition home or self-care (01) ==
LOC: DS 07:45
PROVIDERS: ATTEND Internal Medicine Nephrology
DX: N18.4 Chronic kidney disease, stage 4 (severe) (principal); D63.1 Anemia in chronic kidney disease
CPT/HCPCS: 36415; 85018; 85014; 82728; 82746; 82607; 83540; 84466; Q5106

== ENCOUNTER → 2023-07-28 | Day surgery (SDC) | payer OTHER ==
[~2023-07-28] MED LIST: EPOETIN ALFA-EPBX 10,000 UNIT/ML VIAL ONE
[2023-07-28 09:23] VITALS: BP 127/90; TEMP 98; O2SAT 100; BMI 25.8
[2023-07-28 09:39] LABS: Hematocrit 28.2 % (39.6-49.0)
== END ==
LOC: DS 09:01
PROVIDERS: ATTEND Internal Medicine Nephrology
DX: N18.4 Chronic kidney disease, stage 4 (severe) (principal); D63.1 Anemia in chronic kidney disease
CPT/HCPCS: 36415; 85018; 85014; 96372; Q5106

== ENCOUNTER 2023-09-08 09:18 | Day surgery (SDC) | payer OTHER ==
[2023-09-08 10:04] LABS: Hematocrit 29.5 % (39.6-49.0); Hemoglobin 9.8 g/dL (13.6-17.9)
[2023-09-08] MEDS ORDERED: EPOETIN ALFA-EPBX 10,000 UNIT/ML VIAL ONE (10:20)
[2023-09-08 10:24] VITALS: BP 131/90; TEMP 97.2; O2SAT 99; BMI 25.8
== END 2023-09-08 10:28 | disposition home or self-care (01) ==
LOC: DS 09:18
PROVIDERS: ATTEND Internal Medicine Nephrology
DX: N18.4 Chronic kidney disease, stage 4 (severe) (principal); D63.1 Anemia in chronic kidney disease
CPT/HCPCS: 36415; 85018; 85014; Q5106

== ENCOUNTER 2023-11-02 09:53 | Day surgery (SDC) | payer OTHER ==
[2023-11-02 10:48] VITALS: BP 140/71; TEMP 97.5; O2SAT 100; BMI 24.8
[2023-11-02 11:15] LABS: Hemoglobin 9.4 g/dL (13.6-17.9)
[2023-11-02] MEDS: EPOETIN ALFA-EPBX 10,000 UNIT/ML VIAL ONE (11:35)
== END 2023-11-02 11:36 | disposition home or self-care (01) ==
LOC: DS 09:53
PROVIDERS: ATTEND Internal Medicine Nephrology
DX: N18.4 Chronic kidney disease, stage 4 (severe) (principal); D63.1 Anemia in chronic kidney disease
CPT/HCPCS: 36415; 85018; 85014; 96372; Q5106

== ENCOUNTER 2023-12-17 08:13 | Day surgery (SDC) | payer OTHER ==
[2023-12-17 08:42] VITALS: BP 147/79; TEMP 98.1; O2SAT 100; BMI 25.4
[2023-12-17 08:47] LABS: Hematocrit 29.5 % (39.6-49.0)
[2023-12-17 08:50] LABS: Hemoglobin 9.6 g/dL (13.6-17.9)
[2023-12-17] MEDS ORDERED: EPOETIN ALFA-EPBX 10,000 UNIT/ML VIAL ONE (08:53)
[2023-12-17 09:41] LABS: Ferritin 133.2 ng/mL (26-388); Folic Acid, (Folate) > 20.0 ng/mL (3.1-17.5); Transferrin 178 mg/dL (200-360)
== END 2023-12-17 09:08 | disposition home or self-care (01) ==
LOC: DS 08:13
PROVIDERS: ATTEND Internal Medicine Nephrology
DX: N18.4 Chronic kidney disease, stage 4 (severe) (principal); D63.1 Anemia in chronic kidney disease
CPT/HCPCS: 36415; 82607; 82728; 82746; 83540; 84466; 85014; 85018; 96372; Q5106

== ENCOUNTER 2024-02-25 08:01 | Day surgery (SDC) | payer OTHER ==
[2024-02-25 08:58] LABS: Hematocrit 29.8 % (39.6-49.0); Hemoglobin 9.6 g/dL (13.6-17.9)
[2024-02-25] MEDS: EPOETIN ALFA-EPBX 10,000 UNIT/ML VIAL ONE (09:15)
[2024-02-25 10:02] VITALS: BP 138/88; TEMP 97.4; O2SAT 100; BMI 25.2
== END 2024-02-25 09:24 | disposition home or self-care (01) ==
LOC: DS 08:01
PROVIDERS: ATTEND Internal Medicine Nephrology
DX: N18.4 Chronic kidney disease, stage 4 (severe) (principal); D63.1 Anemia in chronic kidney disease
CPT/HCPCS: 36415; 85018; 85014; 96372; Q5106

== ENCOUNTER → 2024-05-05 | Day surgery (SDC) | payer OTHER ==
[2024-05-05 09:09] VITALS: BP 140/74; TEMP 97.4; O2SAT 99; BMI 25.4
[2024-05-05 09:14] LABS: Hematocrit 30.5 % (39.6-49.0); Hemoglobin 9.9 g/dL (13.6-17.9)
[2024-05-05] MEDS: EPOETIN ALFA-EPBX 10,000 UNIT/ML VIAL ONE (09:30)
== END ==
LOC: DS 08:20
PROVIDERS: ATTEND Internal Medicine Nephrology
DX: N18.4 Chronic kidney disease, stage 4 (severe) (principal); D63.1 Anemia in chronic kidney disease
CPT/HCPCS: 36415; 85018; 85014; 96372; Q5106

== ENCOUNTER 2024-06-06 08:24 | Day surgery (SDC) | payer OTHER ==
[2024-06-06] MEDS: EPOETIN ALFA-EPBX 10,000 UNIT/ML VIAL ONE (08:30)
[2024-06-06 08:59] VITALS: BP 134/80; TEMP 97.9; O2SAT 94; BMI 25.2
== END 2024-06-06 08:40 | disposition home or self-care (01) ==
LOC: DS 08:24
PROVIDERS: ATTEND Internal Medicine Nephrology
DX: N18.4 Chronic kidney disease, stage 4 (severe) (principal); D63.1 Anemia in chronic kidney disease
CPT/HCPCS: 96372; Q5106

== ENCOUNTER 2024-07-11 08:59 | Day surgery (SDC) | payer OTHER ==
[2024-07-11 09:34] LABS: Hematocrit 28.9 % (39.6-49.0); Hemoglobin 9.5 g/dL (13.6-17.9)
[2024-07-11] MEDS: EPOETIN ALFA-EPBX 10,000 UNIT/ML VIAL ONE (09:49)
[2024-07-11 10:13] LABS: Ferritin 93.3 ng/mL (26-388); Transferrin 173 mg/dL (200-360)
[2024-07-11 10:14] LABS: Folic Acid, (Folate) > 20.0 ng/mL (3.1-17.5)
[2024-07-12 16:39] VITALS: BP 129/68; TEMP 97.7; O2SAT 98; BMI 25.0
== END 2024-07-11 09:51 | disposition home or self-care (01) ==
LOC: DS 08:59
PROVIDERS: ATTEND Internal Medicine Nephrology
DX: N18.4 Chronic kidney disease, stage 4 (severe) (principal); D63.1 Anemia in chronic kidney disease
CPT/HCPCS: 36415; 85018; 85014; 82728; 82746; 82607; 83540; 84466; 96372; Q5106

== ENCOUNTER 2025-04-04 14:16 | Emergency (ER) | payer OTHER ==
--- NOTE | 2025-04-04 15:09 | RAD REPORT ---
EXAM: Chest Single View HISTORY: 75 years Male CHEST PAIN COMPARISON: 06/30/2021 FINDINGS: LUNGS/PLEURA: The lungs are clear. No pleural effusions or pneumothorax. No pulmonary edema. CARDIAC/MEDIASTINUM: The cardiac silhouette is within normal limits. UPPER ABDOMEN: Colon interposed to the liver in the right upper quadrant. BONES: No acute abnormality. LINES/TUBES/OTHER: N/A IMPRESSION: No evidence of acute cardiopulmonary disease.
[2025-04-04 15:34] LABS: Absolute Lymphocytes (CBC) 1.5 K/uL (0.7-4.9); Hematocrit 31.7 % (39.6-49.0); Hemoglobin 10.2 g/dL (13.6-17.9); MCH 29.4 pg (27.0-35.0); MCHC 32.3 g/dL (32.0-36.0); MCV 91.0 fL (80-100); MPV 8.7 fL (7.6-11.3); Nucleated RBC Absolute Count 0.0 (0-0); Nucleated Red Blood Cells % 0.1 % (0-0); RBC Red Blood Cell Count 3.48 M/uL (4.33-5.43); White Blood Count 6.80 thou/uL (4.3-10.9)
[2025-04-04 15:38] LABS: PT Prothrombin Time 12.8 SECONDS (10-13.0); Protime INR 1.14
[2025-04-04 15:53] LABS: ALT/SGPT 20.0 U/L (16-61); Albumin 3.7 g/dL (3.4-5.0); Albumin/Globulin Ratio 1.0 (1.1-1.8); Alkaline Phosphatase 44.0 U/L (45-117); Anion Gap 9.3 mEq/L (5.0-15.0); BUN Blood Urea Nitrogen 41.0 mg/dL (7-18); Bilirubin Indirect, Calculated 0.2 mg/dL (0.2-0.8); Globulin 3.6 g/dL (2.3-3.5); Glucose Level 149.0 mg/dL (74-106); NT PRO-BNP 405.0 pg/mL (<450); Troponin High Sensitivity 8.0 pg/mL (<58.9)
[2025-04-04 15:54] LABS: AST/SGOT 18.0 U/L (15-37); Magnesium 1.9 mg/dL (1.6-2.4); Potassium 4.3 mEq/L (3.5-5.1)
--- NOTE | 2025-04-04 16:03 | ER ---
Nurse's Notes [facility] Name: Rell Tucker Jr Age: 75 yrs Sex: Male : 1950 Arrival Date: 04/04/2025 Time: 14:16 Bed 15 Private MD: Diagnosis: Paroxysmal atrial fibrillation Presentation: 04/04 14:20 Chief complaint: Patient states: his heart is racing. HR in triage is 153. Denies cp. me1 Denies dizziness. Coronavirus screen: Vaccine status: Patient reports being unvaccinated. Ebola Screen: No symptoms or risks identified at this time. Initial Sepsis Screen: Does the patient meet any 2 criteria? HR > 90 bpm. Does the patient have a suspected source of infection? No. Patient's initial sepsis screen is negative. Risk Assessment: Do you want to hurt yourself or someone else? Patient reports no desire to harm self or others. Onset of symptoms was April 04, 2025 at 13:00. 14:20 Method Of Arrival: Wheelchair me1 14:20 Acuity: KATELYNN 2 me1 Historical: - Allergies: 14:23 No Known Allergies; me1 - PMHx: 14:23 diabetes mellitus; chronic kidney disease (Unknown); Hypertensive disorder; me1 Hypercholesterolemia; Gout; 14:28 Atrial fibrillation; me1 - PSHx: 14:23 injection for back pain; me1 - Immunization history:: Adult Immunizations up to date. - Infectious Disease History:: Denies. - Social history:: Smoking status: Patient/guardian denies using tobacco, but has a distant history of tobacco abuse. Screenin:46 [facility] ED Fall Risk Assessment (Adult) History of falling in the last 3 months, rg5 including since admission No falls in past 3 months (0 pts) Confusion or Disorientation No (0 pts) Intoxicated or Sedated No (0 pts) Impaired Gait No (0 pts) Mobility Assist Device Used No (0 pt) Altered Elimination No (0 pt) Score/Fall Risk Level 0 - 2 = Low Risk Oriented to surroundings, Maintained a safe environment. Abuse screen: Denies threats or abuse. Nutritional screening: No deficits noted. Tuberculosis screening: No symptoms or risk factors identified. Assessment: 14:46 General: Appears in no apparent distress. comfortable, Behavior is calm, cooperative, rg5 appropriate for age. Pain: Denies pain. Neuro: Level of Consciousness is awake, alert, obeys commands, Oriented to person, place, time, situation. Cardiovascular: Reports palpitations, Patient's skin is warm and dry. Respiratory: Airway is patent Respiratory effort is even, unlabored, Respiratory pattern is regular, symmetrical. GI: Abdomen is round non-distended. : No signs and/or symptoms were reported regarding the genitourinary system. EENT: No signs and/or symptoms were reported regarding the EENT system. Derm: Skin is intact, Skin is dry, Skin is normal. Musculoskeletal: Circulation, motion, and sensation intact. Range of motion: intact in all extremities. 15:35 Reassessment: Patient and/or family updated on plan of care and expected duration. Pain rg5 level reassessed. Patient is alert, oriented x 3, equal unlabored respirations, skin warm/dry/pink. Patient states symptoms have improved. 16:24 Reassessment: Patient and/or family updated on plan of care and expected duration. Pain rg5 level reassessed. Patient is alert, oriented x 3, equal unlabored respirations, skin warm/dry/pink. Patient states feeling better. Vital Signs: 14:20 BP 136 / 105; Pulse 153; Resp 18; Temp 98.2; Pulse Ox 98% ; Weight 66.22 kg; Height 5 me1 ft. 6 in. ; Pain 0/10; 14:45 BP 133 / 87; Pulse 76; Resp 18; Pulse Ox 100% on R/A; rg5 15:30 BP 145 / 83; Pulse 65; Resp 18; Pulse Ox 100% ; Pain 0/10; rg5 16:23 BP 142 / 80; Pulse 70; Resp 18; Pulse Ox 100% ; rg5 14:20 Body Mass Index 23.56 (66.22 kg, 167.64 cm) me1 14:20 Pain Scale: Adult me1 15:30 Pain Scale: Adult rg5 ED Course: 14:17 Patient arrived in ED. mr 14:20 Tamar Khalil PA-C is PHCP. sb4 14:20 Kayli Carrero MD is Attending Physician. sb4 14:23 Triage completed. me1 14:23 Arm band placed on Patient placed in an exam room. me1 14:28 Tao Stevenson, DACIA is Primary Nurse. rg5 14:36 EKG done, by communication technician. reviewed by Tamar Khalil PA-C. ts3 14:46 Patient has correct armband on for positive identification. Bed in low position. Call rg5 light in reach. Door closed. Noise minimized. Warm blanket given. 14:46 No provider procedures requiring assistance completed. Inserted saline lock: 20 gauge rg5 in right antecubital area, using aseptic technique. Blood collected. Flushed with 10 mL NS. Patient maintains SpO2 saturation greater than 95% on room air. 15:04 XRAY Chest (1 view) In Process Unspecified. EDMS 16:02 Yuriy Atkins MD is Referral Physician. sb4 16:24 IV discontinued, bleeding controlled, No redness/swelling at site. Pressure dressing rg5 applied. Administered Medications: No medications were administered Medication: 14:46 VIS not applicable for this client. rg5 Outcome: 16:02 Discharge ordered by MD. sb4 16:24 Discharged to home ambulatory, rg5 16:24 Condition: stable 16:24 Discharge instructions given to patient, Instructed on discharge instructions, follow up and referral plans. Demonstrated understanding of instructions, follow-up care, 16:25 Patient left the ED. rg5 Signatures: Dispatcher [employer] EDTX Boyd Vikki, Reg Reg Tamar Khalil PA-C PA-C sb4 Vidhya Salcedo, RN RN me1 Tao Stevenson RN RN rg5 Melissa Yepez ts3
--- NOTE | 2025-04-04 16:03 | EDPHYS ---
Physician Documentation [facility] Name: Rell Tucker Jr Age: 75 yrs Sex: Male : 1950 Arrival Date: 04/04/2025 Time: 14:16 Bed 15 Private MD: ED Physician Kayli Carrero HPI: 04/04 14:44 This 75 yrs old Black Male presents to ER via Wheelchair with complaints of sb4 Palpitations. 14:44 Patient states that he started experiencing palpitations while at a routine office sb4 visit today and was sent to the ED for further eval. He denies any chest pain or shortness of breath. Denies any prior occurrence of this. Is unsure of his medical history or what his daily medications are. Historical: - Allergies: 14:23 No Known Allergies; me1 - PMHx: 14:23 diabetes mellitus; chronic kidney disease (Unknown); Hypertensive disorder; me1 Hypercholesterolemia; Gout; 14:28 Atrial fibrillation; me1 - PSHx: 14:23 injection for back pain; me1 - Immunization history:: Adult Immunizations up to date. - Infectious Disease History:: Denies. - Social history:: Smoking status: Patient/guardian denies using tobacco, but has a distant history of tobacco abuse. ROS: 14:44 Constitutional: Negative for fever, chills, and weight loss, sb4 14:44 Cardiovascular: Positive for palpitations, 14:44 All other systems are negative, Exam: 14:44 Constitutional: This is a well developed, well nourished patient who is awake, alert, sb4 and in no acute distress. Head/Face: Normocephalic, atraumatic. Eyes: Extra-ocular motions intact. Periorbital areas with no swelling, redness, or edema. ENT: Mucous membranes moist. Respiratory: No increased work of breathing, no retractions or nasal flaring. Abdomen/GI: Soft, non-tender, no distension. Skin: Warm, dry with normal turgor. Normal color with no rashes, no lesions, and no evidence of cellulitis. 14:44 Cardiovascular: Rate: tachycardic, Rhythm: irregularly irregular, Vital Signs: 14:20 BP 136 / 105; Pulse 153; Resp 18; Temp 98.2; Pulse Ox 98% ; Weight 66.22 kg; Height 5 me1 ft. 6 in. ; Pain 0/10; 14:45 BP 133 / 87; Pulse 76; Resp 18; Pulse Ox 100% on R/A; rg5 15:30 BP 145 / 83; Pulse 65; Resp 18; Pulse Ox 100% ; Pain 0/10; rg5 16:23 BP 142 / 80; Pulse 70; Resp 18; Pulse Ox 100% ; rg5 14:20 Body Mass Index 23.56 (66.22 kg, 167.64 cm) me1 14:20 Pain Scale: Adult me1 15:30 Pain Scale: Adult rg5 MDM: 14:20 Medical Screening Exam initiated sb4 14:45 ED course: It appears that patient was in A-fib during triage before EKG was obtained, sb4 but by the time EKG was obtained he converted into sinus rhythm. 15:01 Differential diagnosis: arrythmia, dehydration, stress disorder. sb4 16:03 Data reviewed: vital signs, nurses notes, lab test result(s), EKG, radiologic studies, sb4 and as a result, I will discharge patient. Care significantly affected by the following chronic conditions: Diabetes, Hypertension, Chronic Kidney Disease. Counseling: I had a detailed discussion with the patient and/or guardian regarding the historical points, exam findings, and any diagnostic results supporting the discharge/admit diagnosis, lab results, radiology results, the need for outpatient follow up, a customer service sales consultant. 16:04 Consideration of Admission/Observation Escalation of care including sb4 admission/observation considered. 04/04 14:24 Order name: Basic Metabolic Panel; Complete Time: 15:57 sb4 04/04 14:24 Order name: CBC with Diff; Complete Time: 15:42 sb4 04/04 14:24 Order name: LFT's; Complete Time: 15:57 sb4 04/04 14:24 Order name: Magnesium; Complete Time: 15:57 sb4 04/04 14:24 Order name: NT PRO-BNP; Complete Time: 15:57 sb4 04/04 14:24 Order name: PT-INR; Complete Time: 15:42 sb4 04/04 14:24 Order name: Troponin HS; Complete Time: 15:57 sb4 04/04 14:24 Order name: XRAY Chest (1 view); Complete Time: 15:10 sb4 04/04 14:24 Order name: EKG; Complete Time: 14:25 sb4 04/04 14:24 Order name: Cardiac monitoring; Complete Time: 14:37 sb4 04/04 14:24 Order name: EKG - Nurse/Tech; Complete Time: 14:37 sb4 04/04 14:24 Order name: IV Saline Lock; Complete Time: 14:42 sb4 04/04 14:24 Order name: Labs collected and sent; Complete Time: 14:42 sb4 04/04 14:24 Order name: O2 Per Protocol; Complete Time: 14:42 sb4 04/04 14:24 Order name: O2 Sat Monitoring; Complete Time: 14:42 sb4 EC:38 Rate is 81 beats/min. Rhythm is regular, Sinus Rhythm with Unifocal PVCs. FL interval sb4 is normal at 144 msec. QRS interval is normal at 78 msec. QT interval is normal at 370 msec. No Q waves. T waves are Normal. No ST changes noted. Clinical impression: No evidence of ischemia. Interpreted by me. Reviewed by me. Administered Medications: No medications were administered Disposition Summary: 04/04/25 16:02 Discharge Ordered Notes: Location: Home sb4 Problem: new sb4 Symptoms: are resolved sb4 Condition: Stable sb4 Diagnosis - Paroxysmal atrial fibrillation sb4 Followup: sb4 - With: Yuriy Atkins MD - When: As needed - Reason: Recheck today's complaints, Re-evaluation by your physician Discharge Instructions: - Discharge Summary Sheet sb4 - Atrial Fibrillation sb4 Forms: - Patient Portal Instructions sb4 - Leadership Thank You Letter sb4 Signatures: Dispatcher [employer] Tamar Rushing PA-C PA-C sb4 Vidhya Salcedo, RN RN me1
[2025-04-04 16:42] VITALS: TEMP 98.2
[2025-04-04 16:44] VITALS: O2SAT 100
[2025-04-04 16:45] VITALS: BP 142/80
== END 2025-04-04 16:25 | disposition home or self-care (01) ==
LOC: ER 14:16
DX: I48.0 Paroxysmal atrial fibrillation (principal)
CPT/HCPCS: 36415; 71045; 80048; 80076; 83735; 83880; 84484; 85025; 85610; 93005; 99284

== ENCOUNTER 2025-04-07 18:30 | Emergency (ER) | payer OTHER ==
--- NOTE | 2025-04-07 19:19 | ER ---
Nurse's Notes [facility] Name: Rell Tucker Jr Age: 75 yrs Sex: Male : 1950 Arrival Date: 04/07/2025 Time: 18:30 Bed 15 Private MD: Diagnosis: Tachycardia, unspecified;Essential (primary) hypertension Presentation: 04/07 18:40 Chief complaint: Patient states: HBP today at home with HR 149. BP was 157/93 and HR in me1 triage would go between 96 and 150. Hx of AFIB. Coronavirus screen: At this time, the client does not indicate any symptoms associated with coronavirus-19. Ebola Screen: No symptoms or risks identified at this time. Initial Sepsis Screen: Does the patient meet any 2 criteria? HR > 90 bpm. Does the patient have a suspected source of infection? No. Patient's initial sepsis screen is negative. Risk Assessment: Do you want to hurt yourself or someone else? Patient reports no desire to harm self or others. Onset of symptoms is unknown. 18:40 Method Of Arrival: Ambulatory [facility] [place] 18:40 Acuity: KATELYNN 3 me1 Historical: - Allergies: 18:43 No Known Allergies; me1 - PMHx: 18:43 Atrial fibrillation; chronic kidney disease (Unknown); diabetes mellitus; Gout; me1 Hypercholesterolemia; Hypertensive disorder; - PSHx: 18:43 injection for back pain; me1 - Immunization history:: Adult Immunizations up to date. - Infectious Disease History:: Denies. - Social history:: Smoking status: Patient denies any tobacco usage or history of. Screenin:06 [facility] ED Fall Risk Assessment (Adult) History of falling in the last 3 months, kt5 including since admission No falls in past 3 months (0 pts) Confusion or Disorientation No (0 pts) Intoxicated or Sedated No (0 pts) Impaired Gait No (0 pts) Mobility Assist Device Used No (0 pt) Altered Elimination No (0 pt) Score/Fall Risk Level 0 - 2 = Low Risk. Abuse screen: Denies threats or abuse. Nutritional screening: No deficits noted. Tuberculosis screening: No symptoms or risk factors identified. Assessment: 19:04 General: received report from hourly sales staff jefferson, all questions answered. kt5 19:06 General: md at bs for eval. kt5 19:12 General: Appears in no apparent distress. comfortable, Behavior is calm, cooperative, kt5 appropriate for age. Pain: Denies pain. Neuro: No deficits noted. Jane Agitation-Sedation Scale (RASS): 0 - Alert and Calm Level of Consciousness is awake, alert, obeys commands, Oriented to person, place, time, situation, Appropriate for age. Cardiovascular: No deficits noted. Denies chest pain, Capillary refill < 3 seconds Clubbing of nail beds is absent JVD is absent Pulses are all present. Edema is absent. Cardiovascular: Denies pt has no complaints, bp and hr high airplane captain, normal at this time. Respiratory: No deficits noted. Airway is patent Trachea midline Respiratory effort is even, unlabored, Respiratory pattern is regular, symmetrical, Denies shortness of breath. GI: No deficits noted. No signs and/or symptoms were reported involving the gastrointestinal system. Abdomen is flat, non-distended, Bowel sounds present X 4 quads. Abd is soft and non tender X 4 quads. : No deficits noted. No signs and/or symptoms were reported regarding the genitourinary system. EENT: No deficits noted. No signs and/or symptoms were reported regarding the EENT system. Derm: No deficits noted. No signs and/or symptoms reported regarding the dermatologic system. Musculoskeletal: No deficits noted. No signs and/or symptoms reported regarding the musculoskeletal system. 19:38 Reassessment: Patient appears in no apparent distress at this time. Patient and/or kt5 family updated on plan of care and expected duration. Pain level reassessed. Patient is alert, oriented x 3, equal unlabored respirations, skin warm/dry/pink. Patient denies pain at this time. Vital Signs: 18:40 BP 137 / 88; Pulse 145; Resp 20; Temp 98.2; Pulse Ox 100% ; Weight 66.22 kg; Height 5 me1 ft. 6 in. ; Pain 0/10; 19:26 Pulse 75; ms3 19:38 BP 134 / 75; Pulse 79; Resp 18; Temp 98.6; Pulse Ox 100% ; Pain 0/10; kt5 18:40 Body Mass Index 23.56 (66.22 kg, 167.64 cm) me1 18:40 Pain Scale: Adult me1 19:38 Pain Scale: Adult kt5 ED Course: 18:33 Patient arrived in ED. mr 18:43 Triage completed. me1 18:43 Arm band placed on Patient placed in an exam room. me1 18:50 Huong Ingram, RN is Primary Nurse. af3 18:59 EKG done, by instructional technology director. reviewed by Bj Gupta MD. ts3 19:04 Domingo Cronin DO is Attending Physician. ms3 19:04 Maryanne Sommer, RN is Primary Nurse. kt5 19:06 Patient has correct armband on for positive identification. Bed in low position. Call kt5 light in reach. Side rails up X 1. Adult w/ patient. Client placed on continuous cardiac and pulse oximetry monitoring. NIBP monitoring applied. gambling monitor on. Door closed. Noise minimized. Warm blanket given. Pillow given. 19:06 No provider procedures requiring assistance completed. kt5 19:15 Yuriy Atkins MD is Referral Physician. ms3 19:39 Provided Education on: follow up. kt5 Administered Medications: No medications were administered Medication: 19:06 VIS not applicable for this client. kt5 Outcome: 19:18 Discharge ordered by . ms3 19:39 Discharged to home ambulatory, with family, kt5 19:39 Condition: stable 19:39 Discharge instructions given to patient, family, Instructed on discharge instructions, follow up and referral plans. Demonstrated understanding of instructions, follow-up care, medications, 19:39 Patient left the ED. kt5 Signatures: Vikki Nix, Reg Reg mr Domingo Cronin DO DO ms3 Vidhya Salcedo RN RN me1 Huong Ingram, DACIA RN 3 Melissa Yepez 3 Maryanne Sommer, DACIA RN kt5
--- NOTE | 2025-04-07 19:41 | EDPHYS ---
Physician Documentation [facility] Name: Rell Tucker Jr Age: 75 yrs Sex: Male : 1950 Arrival Date: 04/07/2025 Time: 18:30 Bed 15 Private MD: ED Physician Domingo Cronin HPI: 04/07 19:19 This 75 yrs old Black Male presents to ER via Ambulatory with complaints of High Blood ms3 Pressure, Elevated Heart Rate. 19:19 75-year-old male past medical history of atrial fibrillation, chronic kidney disease, ms3 diabetes, gout, hypercholesterolemia presents to the emergency department for elevated blood pressure and heart rate. Patient states while taking his blood pressure he noted to be in the 140s over 80s and his heart rate to be 150s. Patient denies chest pain, shortness of breath, nausea, vomiting, lightheadedness. Patient denies pain at this time.. Historical: - Allergies: 18:43 No Known Allergies; me1 - PMHx: 18:43 Atrial fibrillation; chronic kidney disease (Unknown); diabetes mellitus; Gout; me1 Hypercholesterolemia; Hypertensive disorder; - PSHx: 18:43 injection for back pain; me1 - Immunization history:: Adult Immunizations up to date. - Infectious Disease History:: Denies. - Social history:: Smoking status: Patient denies any tobacco usage or history of. ROS: 19:19 Constitutional: Negative for fever, and chills. Cardiovascular: Negative for chest ms3 pain, and palpitations. Blood pressure monitor at home read systolic blood pressure in the 140s, diastolic blood pressure in the 80s, and a heart rate of 150s Respiratory: Negative for shortness of breath, cough, wheezing, and pleuritic chest pain, Abdomen/GI: Negative for abdominal pain, nausea, vomiting, diarrhea, and constipation, MS/Extremity: Negative for injury and deformity, Exam: 19:19 Constitutional: This is a well developed, well nourished patient who is awake, alert, ms3 and in no acute distress. Cardiovascular: Regular rate and rhythm with a normal S1 and S2. No gallops, murmurs, or rubs. Normal PMI, no JVD. No pulse deficits. Respiratory: Lungs have equal breath sounds bilaterally, clear to auscultation and percussion. No rales, rhonchi or wheezes noted. No increased work of breathing, no retractions or nasal flaring. Abdomen/GI: Soft, non-tender, with normal bowel sounds. No distension or tympany. No guarding or rebound. No evidence of tenderness throughout. Skin: Warm, dry with normal turgor. Normal color with no rashes, no lesions, and no evidence of cellulitis. MS/ Extremity: Pulses equal, no cyanosis. Neurovascular intact. Full, normal range of motion. 19:19 ECG was reviewed by the Attending Physician. Vital Signs: 18:40 BP 137 / 88; Pulse 145; Resp 20; Temp 98.2; Pulse Ox 100% ; Weight 66.22 kg; Height 5 me1 ft. 6 in. ; Pain 0/10; 19:26 Pulse 75; ms3 19:38 BP 134 / 75; Pulse 79; Resp 18; Temp 98.6; Pulse Ox 100% ; Pain 0/10; kt5 18:40 Body Mass Index 23.56 (66.22 kg, 167.64 cm) me1 18:40 Pain Scale: Adult me1 19:38 Pain Scale: Adult kt5 MDM: 19:04 Medical Screening Exam initiated ms3 19:25 Differential diagnosis: Atrial fibrillation versus hypertension versus atrial ms3 fibrillation with rapid ventricular rate. 19:26 Data reviewed: vital signs, nurses notes, EKG, and as a result, I will discharge ms3 patient. Independent interpretation of the following test(s) in the Emergency Department EKG: See my EKG interpretation above. Counseling: I had a detailed discussion with the patient and/or guardian regarding the historical points, exam findings, and any diagnostic results supporting the discharge/admit diagnosis, the need for outpatient follow up, to return to the emergency department if symptoms worsen or persist or if there are any questions or concerns that arise at home. ED course: Discussed case with Dr. Atkins. Patient heart rate 75, patient has been without symptoms. Patient has appoint with Dr. Atkins on Thursday. Patient to follow-up as scheduled. If patient experiences lightheadedness, chest pain, shortness of breath, worsening symptoms, or any other concerns she is to return to the emergency department. Patient understands and agrees with plan. All questions were answered. Patient is alert and orient x 4, no apparent distress, nontoxic-appearing, speaking full sentences, normal sinus rhythm on EKG. EC:19 Rate is 93 beats/min. Rhythm is regular. QRS [place] is Normal. MI interval is normal. QRS ms3 interval is normal. Clinical impression: NSR w/ Non-specific ST/T Changes. Interpreted by me. Reviewed by me. Administered Medications: No medications were administered Disposition: 23:03 Chart complete. ms3 Disposition Summary: 04/07/25 19:18 Discharge Ordered Notes: Location: Home ms3 Condition: Stable ms3 Diagnosis - Tachycardia, unspecified ms3 - Essential (primary) hypertension ms3 Followup: ms3 - With: Yuriy Atkins MD - When: 2 - 3 days - Reason: Recheck today's complaints Discharge Instructions: - Discharge Summary Sheet ms3 - Hypertension, Adult ms3 Forms: - Medication Reconciliation Form ms3 - Antibiotic Education ms3 - Prescription Opioid Use ms3 - Patient Portal Instructions ms3 - Leadership Thank You Letter ms3 Signatures: Domingo Cronin DO DO ms3 Vidhya Salcedo, RN RN me1
[2025-04-07 19:54] VITALS: O2SAT 100
[2025-04-07 19:56] VITALS: BP 134/75; TEMP 98.6
== END 2025-04-07 19:39 | disposition home or self-care (01) ==
LOC: ER 18:30
DX: R00.0 Tachycardia, unspecified (principal); I10 Essential (primary) hypertension; I48.91 Unspecified atrial fibrillation
CPT/HCPCS: 93005; 99284

== ENCOUNTER 2025-04-12 14:43 | Observation (INO) | payer OTHER ==
[2025-04-12] MEDS ORDERED: MAGNESIUM SULFATE 1 gm IVPB 1 GM/100 ML BAG IV ONE (15:28)
[2025-04-12 15:40] LABS: Absolute Lymphocytes (CBC) 1.0 K/uL (0.7-4.9); Hematocrit 31.9 % (39.6-49.0); Hemoglobin 10.6 g/dL (13.6-17.9); MCH 29.9 pg (27.0-35.0); MCHC 33.3 g/dL (32.0-36.0); MCV 89.8 fL (80-100); MPV 8.8 fL (7.6-11.3); Nucleated RBC Absolute Count 0.0 (0-0); Nucleated Red Blood Cells % 0.0 % (0-0); RBC Red Blood Cell Count 3.55 M/uL (4.33-5.43); White Blood Count 9.80 thou/uL (4.3-10.9)
[2025-04-12 15:47] LABS: PT Prothrombin Time 12.1 SECONDS (10-13.0); Protime INR 1.07
[2025-04-12] MEDS ORDERED: AMIODARONE HCL 150 MG/3 ML INJ IV ONE (15:48)
[2025-04-12] MEDS ORDERED: NA CHLORIDE 0.9% 100 ML ONE ×2 (15:48→18:35)
[2025-04-12] MEDS ORDERED: AMIODARONE IN DEXTROSE,ISO-OSM 360 MG/200 ML BAG IV ONE ×2 (15:48→22:08)
[2025-04-12 16:01] LABS: ALT/SGPT 19.0 U/L (16-61); AST/SGOT 19.0 U/L (15-37); Albumin 3.6 g/dL (3.4-5.0); Albumin/Globulin Ratio 0.9 (1.1-1.8); Alkaline Phosphatase 50.0 U/L (45-117); Anion Gap 14.0 mEq/L (5.0-15.0); BUN Blood Urea Nitrogen 29.0 mg/dL (7-18); Bilirubin Indirect, Calculated 0.4 mg/dL (0.2-0.8); Globulin 3.8 g/dL (2.3-3.5); Glucose Level 74.0 mg/dL (74-106); Magnesium 1.6 mg/dL (1.6-2.4); NT PRO-BNP 1376.0 pg/mL (<450); Potassium 4.0 mEq/L (3.5-5.1); Troponin High Sensitivity 9.8 pg/mL (<58.9)
--- NOTE | 2025-04-12 16:36 | RAD REPORT ---
EXAMINATION: ONE VIEW CHEST XR CLINICAL INDICATION: Male, 75 years old.,PALPITATIONS TECHNIQUE: Frontal chest projection is submitted. Examination is limited by patient positioning and t echnique. COMPARISON: 04/04/2025 FINDINGS: The lungs are well inflated. Hazy right central lung opacities. Blunting of the right costophrenic an gle may indicate pleural thickening or trace effusion. No pneumothorax or sizable effusion. The heart is normal in size. Mediastinal contours are unremarkable. IMPRESSION: Hazy right central lung opacities, could reflect pneumonia. Possible trace right effusion.
[2025-04-12 16:53] LABS: Sqamous Epithelial None Seen /HPF (None Seen); Urine Culture Reflex Order NOT NEEDED; Urine Microscopic Reflex YN ORDER UMIC
[2025-04-12] MEDS ORDERED: FAMOTIDINE 20 MG/2 ML VIAL IV ONE (17:04)
[2025-04-12 18:00] LABS: Influenza A Ag Negative; Influenza B Ag Negative; SARS-CoV-2 Antigen Rapid Res Negative (Negative)
--- NOTE | 2025-04-12 18:24 | RAD REPORT ---
EXAMINATION: CT Thorax Wo Con CLINICAL INDICATION: Male, 75 years old. [facility] SO[facility] Bed Name: 25 Y TECHNIQUE: Axial CT scan of the chest without intravenous contrast. Multiplanar reformats were genera micky and reviewed. One or more of the following dose reduction techniques were used: Automated exposure control, adjustment of the mA and/or kV according patient size, and/or iterative reconstruct ion. Unless otherwise specified, incidental findings do not require dedicated imaging follow-up. COMPARISON: Chest radiograph of the Same day FINDINGS: LOWER NECK: Visualized thyroid gland and soft tissues are normal. LUNGS: Central geographic groundglass opacities within the right lung, most pronounced in the right u pper lobe. No evidence of airspace or interstitial process. No worrisome nodules. PLEURA: No pleural effusion. No pneumothorax. . MEDIASTINUM AND LYMPH NODES: No mediastinal mass or fluid collection. Normal size mediastinal, hilar, and axillary lymph nodes. OSSEOUS STRUCTURES AND CHEST WALL: Intact. UPPER ABDOMEN: No significant abnormalities. IMPRESSION: Central geographic groundglass opacities in the right lung, concerning for atypical pneumonitis. Foca l pulmonary edema could also produce a similar appearance.
[2025-04-12] MEDS ORDERED: PIPERACIL/TAZO 3.375 GM VIAL IV ONE (18:36)
--- NOTE | 2025-04-12 18:59 | ER ---
Nurse's Notes [facility] Name: Rell Tucker Jr Age: 75 yrs Sex: Male : 1950 Arrival Date: 04/12/2025 Time: 14:43 Bed 26 Private MD: Diagnosis: Paroxysmal tachycardia, unspecified;Unspecified combined systolic (congestive) and diastolic (congestive) heart failure;Other pneumonia, unspecified organism Presentation: 04/12 15:01 Chief complaint: Patient states: WAS SENT HERE BY PROJ ENGINEER FOR ELEVATED HEART RATE. dd2 PT REPORTS THIS HAPPENED X2 LAST WEEK AND WAS HERE IN THE ER. Coronavirus screen: At this time, the client does not indicate any symptoms associated with coronavirus-19. Ebola Screen: No symptoms or risks identified at this time. Initial Sepsis Screen: Does the patient meet any 2 criteria? No. Patient's initial sepsis screen is negative. Does the patient have a suspected source of infection? No. Patient's initial sepsis screen is negative. Risk Assessment: Do you want to hurt yourself or someone else? Patient reports no desire to harm self or others. Onset of symptoms was April 12, 2025. 15:01 Method Of Arrival: Ambulatory dd2 15:01 Acuity: KATELYNN 2 dd2 Triage Assessment: 15:03 General: Appears in no apparent distress. comfortable, Behavior is calm, cooperative, dd2 appropriate for age. Pain: Denies pain. Cardiovascular: Patient's skin is warm and dry. Pulses are palpable in right radial artery and left radial artery Rhythm is irregular. Historical: - Allergies: 15:03 No Known Allergies; dd2 - PMHx: 15:03 Atrial fibrillation; chronic kidney disease (Unknown); diabetes mellitus; Gout; dd2 Hypercholesterolemia; Hypertensive disorder; - PSHx: 15:03 injection for back pain; dd2 - Immunization history:: Adult Immunizations up to date. - Infectious Disease History:: Denies. - Social history:: Smoking status: Patient denies any tobacco usage or history of. Screenin:38 [facility] ED Fall Risk Assessment (Adult) History of falling in the last 3 months, mb9 including since admission No falls in past 3 months (0 pts) Confusion or Disorientation No (0 pts) Intoxicated or Sedated No (0 pts) Impaired Gait No (0 pts) Mobility Assist Device Used No (0 pt) Altered Elimination No (0 pt) Score/Fall Risk Level 0 - 2 = Low Risk Oriented to surroundings, Maintained a safe environment, Educated pt \T\ family on fall prevention, incl call for assistance when getting out of bed. Abuse screen: Denies threats or abuse. Nutritional screening: No deficits noted. Tuberculosis screening: No symptoms or risk factors identified. Assessment: 15:37 General: Appears in no apparent distress. Behavior is calm, cooperative. Pain: Denies mb9 pain. Neuro: Jane Agitation-Sedation Scale (RASS): 0 - Alert and Calm Level of Consciousness is awake, alert, obeys commands, Oriented to person, place, time, situation, Appropriate for age Denies weakness dizziness. Cardiovascular: Reports intermittent palpations Heart tones S1 S2 present Patient's skin is warm and dry. Pulses are all present. Respiratory: Airway is patent Respiratory effort is even, unlabored, Respiratory pattern is regular, symmetrical, Breath sounds are clear bilaterally. Denies shortness of breath. GI: Abdomen is round non-distended, Bowel sounds present X 4 quads. Abd is soft and non tender X 4 quads. : No signs and/or symptoms were reported regarding the genitourinary system. EENT: No signs and/or symptoms were reported regarding the EENT system. Derm: Skin is pink, warm \T\ dry. Musculoskeletal: Range of motion: intact in all extremities. 16:35 Reassessment: Patient appears in no apparent distress at this time. No changes from mb9 previously documented assessment. Patient and/or family updated on plan of care and expected duration. Pain level reassessed. Patient is alert, oriented x 3, equal unlabored respirations, skin warm/dry/pink. 17:35 Reassessment: Patient appears in no apparent distress at this time. No changes from mb9 previously documented assessment. Patient and/or family updated on plan of care and expected duration. Pain level reassessed. Patient is alert, oriented x 3, equal unlabored respirations, skin warm/dry/pink. 18:35 Reassessment: Patient appears in no apparent distress at this time. No changes from mb9 previously documented assessment. Patient and/or family updated on plan of care and expected duration. Pain level reassessed. Patient is alert, oriented x 3, equal unlabored respirations, skin warm/dry/pink. 19:30 General: Appears in no apparent distress. comfortable, Behavior is calm, cooperative. al5 Pain: Denies pain. Neuro: Level of Consciousness is awake, alert, obeys commands, Oriented to person, place, time, situation. Cardiovascular: Patient's skin is warm and dry. Rhythm is sinus rhythm. Respiratory: Airway is patent Respiratory effort is even, unlabored, Respiratory pattern is regular, symmetrical. GI: Abdomen is non-distended, Reports diarrhea, earlier on in the day, had one episode. states he took imodium at home to slow down the diarrhea, has not had an episode since. : No signs and/or symptoms were reported regarding the genitourinary system. EENT: No signs and/or symptoms were reported regarding the EENT system. Derm: Skin is intact, Skin is pink, warm \T\ dry. normal. Musculoskeletal: Circulation, motion, and sensation intact. Range of motion: intact in all extremities. 20:42 Reassessment: Patient appears in no apparent distress at this time. No changes from al5 previously documented assessment. Patient and/or family updated on plan of care and expected duration. Pain level reassessed. Patient is alert, oriented x 3, equal unlabored respirations, skin warm/dry/pink. Vital Signs: 15:01 BP 135 / 89; Pulse 162; Resp 16; Temp 98.2; Pulse Ox 98% on R/A; Weight 68.04 kg; Pain dd2 0/10; 15:25 Pulse 99; Resp 16; Pulse Ox 100% ; mb9 15:54 BP 144 / 89; Pulse 94; Resp 16; Pulse Ox 98% on R/A; Pain 0/10; mb9 16:06 BP 147 / 92; Pulse 101; Resp 18; Pulse Ox 98% on R/A; mb9 17:00 BP 139 / 87; Pulse 98; Resp 18; Pulse Ox 100% ; mb9 18:06 BP 133 / 87; Pulse 89; Resp 18; Pulse Ox 100% on R/A; mb9 18:58 BP 148 / 89; Pulse 78; Resp 18; Pulse Ox 99% on R/A; Pain 0/10; mb9 19:30 BP 139 / 93; Pulse 80; Resp 18; Pulse Ox 100% on R/A; al5 20:15 BP 156 / 97; Pulse 85; Resp 16; Pulse Ox 97% on R/A; al5 21:00 BP 146 / 92; Pulse 73; Resp 16; Pulse Ox 98% on R/A; al5 21:45 BP 148 / 89; Pulse 70; Resp 16; Pulse Ox 99% on R/A; al5 15:01 Pain Scale: Adult dd2 15:54 Pain Scale: Adult mb9 18:58 Pain Scale: Adult mb9 ED Course: 14:51 Patient arrived in ED. al6 14:55 Bj Gr PA-C is PHCP. cp 14:55 Bj Gupta MD is Attending Physician. cp 15:03 Triage completed. dd2 15:03 Arm band placed on right wrist. dd2 15:25 Vikki Burkett RN is Primary Nurse. mb9 15:25 Initial lab(s) drawn, by me, sent to lab. EKG done, by ED staff, reviewed by Bj Gupta MD. 15:26 Inserted saline lock: 20 gauge in right forearm, using aseptic technique. Blood mb9 collected. Flushed with 10 mL NS. 15:39 Placed in gown. Bed in low position. Call light in reach. Side rails up X 1. Provided mb9 Education on: press call light if needing anything. Client placed on continuous cardiac and pulse oximetry monitoring. NIBP monitoring applied. bus monitor on. Door closed. Noise minimized. Warm blanket given. Pillow given. 15:39 No provider procedures requiring assistance completed. mb9 15:42 XRAY Chest (1 view) In Process Unspecified. EDMS 15:55 Inserted saline lock: 20 gauge in left antecubital area, using aseptic technique. mb9 Flushed with 10 mL NS. 17:20 CT Chest Wo Con In Process Unspecified. EDMS 18:57 Daniel Sifuentes, RN is Hospitalizing Provider. cp 18:58 Patient admitted, IV remains in place. mb9 Administered Medications: 15:30 Drug: Magnesium Sulfate IVPB 1 grams IVPB once over 1 hrs Route: IVPB; Infused Over: 1 mb9 hrs; Site: right forearm; 16:55 Follow up: Response: No adverse reaction; IV Status: Completed infusion mb9 15:50 Drug: amiodarone IVPB 150 mg 100 ml IVPB once over 10 mins; (mix in D5W) Volume: 100 mb9 ml; Route: IVPB; Infused Over: 10 mins; Site: right forearm; 16:05 Follow up: Response: No adverse reaction; IV Status: Completed infusion mb9 16:02 Drug: amiodarone IVPB 900 mg, D5W IV 500 ml IVPB at 1 mg/min continuous; for 6 hrs, mb9 then change to 0.5 mg/min Route: IVPB; Rate: 1 mg/min; Site: right forearm; 18:59 Follow up: Response: No adverse reaction; IV Status: Infusion continued upon admission mb9 17:06 Drug: Furosemide IVP 20 mg IVP once; give over 2 minutes Route: IVP; Site: left mb9 antecubital; 18:23 Follow up: Response: No adverse reaction mb9 18:40 Drug: Piperacillin-Tazobactam IVPB 3.375 grams IVPB once over 60 mins; (mix in NS 100 mb9 mL) Route: IVPB; Infused Over: 60 mins; Site: left antecubital; 18:59 Follow up: Response: No adverse reaction; IV Status: Infusion continued upon admission mb9 Medication: 15:39 VIS not applicable for this client. mb9 Output: 17:35 Urine: 750ml (Voided); Total: 750ml. mb9 Outcome: 18:58 Decision to Hospitalize by Provider. cp 22:28 Admitted to Tele accompanied by nurse, via stretcher, room 405, vc1 22:28 Condition: stable 22:30 Patient left the ED. vc1 Signatures: Dispatcher [employer] EDMS Bj Gr PA-C PA-C cp Yenni Bradley RN RN vc1 Vikki Burkett RN RN mb9 Kasandra Saenz RN RN al5 VIRGIL SMALL RN RN dd2 Barbara Hart al6 Corrections: (The following items were deleted from the chart) 15:05 15:01 BP 135 / 89; Pulse 147bpm; Resp 16bpm; Pulse Ox 98% RA; Temp 98.2F; 68.04 kg; dd2 Pain 0/10, Adult; dd2 15:05 15:01 Acuity: KATELYNN 3 dd2 dd2
--- NOTE | 2025-04-12 18:59 | EDPHYS ---
Physician Documentation [facility] Name: Rell Tucker Jr Age: 75 yrs Sex: Male : 1950 Arrival Date: 04/12/2025 Time: 14:43 Bed 26 Private MD: ED Physician Bj Gupta HPI: 04/12 15:20 This 75 yrs old Black Male presents to ER via Ambulatory with complaints of Abnormal cp Lab Results. 15:20 The patient presents with a history of heart racing, tachycardia. cp 15:20 Context: The symptoms occur at rest. Onset: The symptoms/episode began/occurred at an cp unknown time. Duration: The patient or guardian reports multiple episodes, that are intermittent, with no pattern. Associated signs and symptoms: Pertinent negatives: chest pain, SOB, syncope, near-syncope, vomiting, diarrhea. Historical: - Allergies: 15:03 No Known Allergies; dd2 - PMHx: 15:03 Atrial fibrillation; chronic kidney disease (Unknown); diabetes mellitus; Gout; dd2 Hypercholesterolemia; Hypertensive disorder; - PSHx: 15:03 injection for back pain; dd2 - Immunization history:: Adult Immunizations up to date. - Infectious Disease History:: Denies. - Social history:: Smoking status: Patient denies any tobacco usage or history of. ROS: 15:22 Constitutional: Negative for body aches, chills, fever, cp 15:22 Cardiovascular: Positive for edema, palpitations, Negative for chest pain, 15:22 Respiratory: Negative for cough, wheezing, 15:22 Abdomen/GI: Negative for abdominal pain, vomiting, diarrhea, constipation, Exam: 15:23 Head/Face: Normocephalic, atraumatic. cp 15:23 Constitutional: The patient appears in no acute distress, alert, awake, non-diaphoretic, non-toxic, well developed, well nourished, 15:23 Eyes: Periorbital structures: appear normal, Conjunctiva: normal, no exudate, no cp injection, Sclera: no appreciated abnormality, Lids and lashes: appear normal, bilaterally, 15:23 ENT: External ear(s): are unremarkable, Nose: is normal, Mouth: Lips: moist, Oral cp mucosa: moist, Posterior pharynx: Airway: no evidence of obstruction, patent, 15:23 Chest/axilla: Inspection: normal, Palpation: is normal, no crepitus, no tenderness, 15:23 Cardiovascular: Rate: tachycardic, Rhythm: irregular, Edema: ankle edema, that is moderate, JVD: is not appreciated, 15:23 Respiratory: the patient does not display signs of respiratory distress, Respirations: normal, no use of accessory muscles, no retractions, labored breathing, is not present, Breath sounds: decreased breath sounds, that are mild, throughout, 15:23 Abdomen/GI: Inspection: abdomen appears normal, Palpation: abdomen is soft and non-tender, in all quadrants, 15:23 Back: pain, is absent, ROM is normal, 15:23 Skin: cellulitis, is not appreciated, no rash present. 15:23 Neuro: Orientation: to person, place \T\ time. Mentation: is normal, Motor: moves all fours, strength is normal, Sensation: is normal, 15:24 ECG was reviewed by the Attending Physician. cp Vital Signs: 15:01 BP 135 / 89; Pulse 162; Resp 16; Temp 98.2; Pulse Ox 98% on R/A; Weight 68.04 kg; Pain dd2 0/10; 15:25 Pulse 99; Resp 16; Pulse Ox 100% ; mb9 15:54 BP 144 / 89; Pulse 94; Resp 16; Pulse Ox 98% on R/A; Pain 0/10; mb9 16:06 BP 147 / 92; Pulse 101; Resp 18; Pulse Ox 98% on R/A; mb9 17:00 BP 139 / 87; Pulse 98; Resp 18; Pulse Ox 100% ; mb9 18:06 BP 133 / 87; Pulse 89; Resp 18; Pulse Ox 100% on R/A; mb9 18:58 BP 148 / 89; Pulse 78; Resp 18; Pulse Ox 99% on R/A; Pain 0/10; mb9 19:30 BP 139 / 93; Pulse 80; Resp 18; Pulse Ox 100% on R/A; al5 20:15 BP 156 / 97; Pulse 85; Resp 16; Pulse Ox 97% on R/A; al5 21:00 BP 146 / 92; Pulse 73; Resp 16; Pulse Ox 98% on R/A; al5 21:45 BP 148 / 89; Pulse 70; Resp 16; Pulse Ox 99% on R/A; al5 15:01 Pain Scale: Adult dd2 15:54 Pain Scale: Adult mb9 18:58 Pain Scale: Adult mb9 MDM: 14:58 Medical Screening Exam initiated cp 15:41 Management of patient was discussed with the following: Molder Offbearer: DR Gupta spoke cp with DR Atkins who wants patient given loading dose of Amiodarone and then started on Amiodarone drip. 19:00 Data reviewed: vital signs, nurses notes, lab test result(s), EKG, radiologic studies, cp CT scan, plain films, and as a result, I will admit patient. 19:00 Differential diagnosis: arrythmia, dehydration, stress disorder, electrolyte cp abnormalities. I considered the following discharge prescriptions or medication management in the emergency department Medications were administered in the Emergency Department. See MAR. Independent interpretation of the following test(s) in the Emergency Department EKG: See my EKG interpretation above. Care significantly affected by the following chronic conditions: Diabetes, Hypertension. Counseling: I had a detailed discussion with the patient and/or guardian regarding the historical points, exam findings, and any diagnostic results supporting the discharge/admit diagnosis, lab results, radiology results. ED course: consult with DR Atkins who requests starting Amiodarone and admit to hospitalist. Patient admitted to hospitalist service after discussion with MR Sifuentes. 04/12 15:07 Order name: Basic Metabolic Panel; Complete Time: 16:53 cp 04/12 16:53 Interpretation: Normal except: BUN 29; CRE 2.58; GFR 25. cp 04/12 15:07 Order name: CBC with Diff; Complete Time: 16:53 cp 04/12 16:54 Interpretation: Normal except: RBC 3.55; HGB 10.6; HCT 31.9; RDW 15.9; BIANCA% 84.9; LYM% cp 10.5; NEUT A 8.4. 04/12 15:07 Order name: LFT's; Complete Time: 16:53 cp 04/12 15:07 Order name: Magnesium; Complete Time: 16:53 cp 04/12 15:07 Order name: NT PRO-BNP; Complete Time: 16:53 cp 04/12 15:07 Order name: PT-INR; Complete Time: 16:53 cp 04/12 15:07 Order name: Troponin HS; Complete Time: 16:53 cp 04/12 15:17 Order name: Blood Culture Adult (2) cp 04/12 15:17 Order name: Lactate w/ 2H reflex if indic.; Complete Time: 16:53 cp 04/12 15:17 Order name: UA Rfx Corky Cult if indicated; Complete Time: 16:55 cp 04/12 16:56 Order name: COVID-19 Ag + Flu A+B Ag; Complete Time: 18:30 cp 04/12 15:07 Order name: XRAY Chest (1 view); Complete Time: 16:53 cp 04/12 16:56 Order name: CT Chest Wo Con; Complete Time: 18:30 cp 04/12 15:07 Order name: Cardiac monitoring; Complete Time: 15:25 cp 04/12 15:07 Order name: EKG - Nurse/Tech; Complete Time: 15:25 cp 04/12 15:07 Order name: IV Saline Lock; Complete Time: 15:25 cp 04/12 15:07 Order name: Labs collected and sent; Complete Time: 15:25 cp 04/12 15:07 Order name: O2 Per Protocol; Complete Time: 15:25 cp 04/12 15:07 Order name: O2 Sat Monitoring; Complete Time: 15:25 cp 04/12 15:17 Order name: Accucheck; Complete Time: 15:25 cp 04/12 15:17 Order name: IV Saline Lock - Large Bore; Complete Time: 15:25 cp 04/12 15:17 Order name: Vital Signs; Complete Time: 15:25 cp EC:24 Rate is 96 beats/min. Rhythm is irregular. TX interval is normal. QRS interval is cp normal. QT interval is normal. T waves are Inverted in lead aVR. Interpreted by me. Reviewed by me. Administered Medications: 15:30 Drug: Magnesium Sulfate IVPB 1 grams IVPB once over 1 hrs Route: IVPB; Infused Over: 1 mb9 hrs; Site: right forearm; 16:55 Follow up: Response: No adverse reaction; IV Status: Completed infusion mb9 15:50 Drug: amiodarone IVPB 150 mg 100 ml IVPB once over 10 mins; (mix in D5W) Volume: 100 mb9 ml; Route: IVPB; Infused Over: 10 mins; Site: right forearm; 16:05 Follow up: Response: No adverse reaction; IV Status: Completed infusion mb9 16:02 Drug: amiodarone IVPB 900 mg, D5W IV 500 ml IVPB at 1 mg/min continuous; for 6 hrs, mb9 then change to 0.5 mg/min Route: IVPB; Rate: 1 mg/min; Site: right forearm; 18:59 Follow up: Response: No adverse reaction; IV Status: Infusion continued upon admission mb9 17:06 Drug: Furosemide IVP 20 mg IVP once; give over 2 minutes Route: IVP; Site: left mb9 antecubital; 18:23 Follow up: Response: No adverse reaction mb9 18:40 Drug: Piperacillin-Tazobactam IVPB 3.375 grams IVPB once over 60 mins; (mix in NS 100 mb9 mL) Route: IVPB; Infused Over: 60 mins; Site: left antecubital; 18:59 Follow up: Response: No adverse reaction; IV Status: Infusion continued upon admission mb9 Disposition: 04/13 07:32 Co-signature as Attending Physician, Bj Gupta MD I agree with the assessment and salbador plan of care. 21:53 Chart complete. cp Disposition Summary: 04/12/25 18:58 Hospitalization Ordered Notes: Hospitalization Status: Inpatient Admission cp Provider: Daniel Sifuentes cp Condition: Stable cp Problem: new cp Symptoms: have improved cp Bed/Room Type: Standard cp Location: Telemetry/MedSurg (Inpatient)(04/12/25 21:36) vc1 Room Assignment: 405(04/12/25 21:42) vc1 Diagnosis - Paroxysmal tachycardia, unspecified cp - Unspecified combined systolic (congestive) and diastolic (congestive) heart failure cp - Other pneumonia, unspecified organism cp Forms: - Medication Reconciliation Form cp - SBAR form cp - Leadership Thank You Letter cp Signatures: Dispatcher [employer] Bj Hart MD MD cha Page, Corey, PA-C PA-C cp Yenni Bradley RN RN vc1 Vikki Burkett RN RN mb9 VIRGIL SMALL RN RN dd2 Corrections: (The following items were deleted from the chart) 04/12 15:07 15:07 BASIC METABOLIC PANEL+C.LAB.BRZ ordered. EDMS EDMS 15:07 15:07 CBC+H.LAB.BRZ ordered. EDMS EDMS 15:07 15:07 HEPATIC FUNCTION+C.LAB.BRZ ordered. EDMS EDMS 15:07 15:07 MAGNESIUM+C.LAB.BRZ ordered. EDMS EDMS 15:07 15:07 PROBNP+C.LAB.BRZ ordered. EDMS EDMS 15:07 15:07 PROTIME (+INR)+COAG.LAB.BRZ ordered. EDMS EDMS 15:07 15:07 Troponin High Sensitivity+C.LAB.BRZ ordered. EDMS EDMS 15:07 15:07 Chest Single View+RAD.RAD.BRZ ordered. EDMS EDMS 15:18 15:18 BLOOD CULTURE*+BA.LAB.BRZ ordered. EDMS EDMS 15:18 15:18 LACTATE+C.LAB.BRZ ordered. EDMS EDMS 15:18 15:18 UA Rfx Corky Cult if indicated+U.LAB.BRZ ordered. EDMS EDMS 16:57 16:57 COVID-19 Ag + Flu A+B Ag+I.LAB.BRZ ordered. EDMS EDMS 19:57 18:58 Intensive Care Unit cp vc1 19:57 18:58 cp vc1 21:36 19:57 [facility] ER HOLD vc1 vc1 21:36 19:57 ERHOLD- vc1 vc1 21:42 21:36 vc1 vc1
[2025-04-12] MEDS ORDERED: ACETAMINOPHEN 325 MG TABLET PO PRN (21:30)
--- NOTE | 2025-04-12 21:35 | P.HP ---
Certification for Inpatient Patient admitted to: Observation With expected LOS: >2 Midnights Patient will require the following post-hospital care: None Practitioner: I am a practitioner with admitting privileges, knowledge of patient current condition, hospital course, and medical plan of care. Services: Services provided to patient in accordance with Admission requirements found in Title 42 Section 412.3 of the Code of Federal Regulations Patient History Date of Service: 04/12/25 Reason for admission: Paroxysmal tachycardia, pneumonia questionable. History of Present Illness: Patient is a pleasant 75-year-old male with past medical history of stage IV CKD, essential hypertension, hypercholesteremia, gout, BPH, type 2 diabetes mellitus, patient states his diabetes is under control and currently not taking any medication for diabetes. Patient reports to ER paroxysmal tachycardia, after he was sent to ER by his stage rigger Dr. Atkins. Patient states , he had an episode tachycardia but did not go to the ER, states he had another episode of tachycardia in the 150s- 160s, and he came to the ER treated and discharged home. Patient states he went to see his stage rigger Dr. Atkins today, states while he was at the clinic, his heart rate was really high, and EMS was called and patient was brought to ER by ca rdiologist instruction. Patient currently denies of any chest pain or shortness of breath. Patient was started on amiodarone drip in the ER as instructed by stage rigger. On admission assessment, patient has mild bilateral scattered coarse crackles, states he has been coughing nonproductive. Course in ER. (1) CT thorax without contrast. Impression: Central geographic ground glass opacities in the right lung, concerning for atypical pneumonitis. Focal pulmonary edema could also produce a similar appearance. (2) chest x-ray 1 view. Impression: Hazy right central lung opacities, could reflect pneumonia. Possible trace right effusion. Allergies No Known Allergies Allergy (Verified 03/28/24 08:40) Home Medications: Amlodipine Besylate [Norvasc] 5 mg PO DAILY 03/04/16 allopurinoL [Allopurinol] 100 mg PO DAILY 03/04/16 Cholecalciferol (Vitamin D3) [Vitamin D3] 1 cap PO DAILY 05/21/22 Furosemide 20 mg PO DAILY 05/21/22 Gabapentin 100 mg PO DAILY 05/21/22 Tamsulosin [Flomax] 0.8 mg PO BEDTIME 05/11/23 Fluticasone Propionate 50 mcg IN DAILY 12/17/23 Montelukast [Singulair*] 10 mg PO DAILY 12/17/23 Omeprazole [Prilosec] 40 mg PO DAILY 12/17/23 Sodium Bicarbonate 650 mg PO BID 12/17/23 Tramadol HCl [Ultram] 50 mg PO Q6HR PRN 05/05/24 Ferrous Fumarate/Ascorbic Acid [Jacob-Sequels 65-25 mg Caplet] 1 tab PO TID 04/12/25 - Past Medical/Surgical History Diabetic: Yes -: DM -: HTN -: ENLARGED PROSTATE -: GERD -: ANGIOPLASTY - Social History Smoking Status: Former smoker Alcohol use: Yes CD- Drugs: No Caffeine use: Yes Place of Residence: Home Review of Systems 10-point ROS is otherwise unremarkable Respiratory: Cough Cardiovascular: Other (Tachycardia.) Physical Examination - Physical Exam General: Alert, In no apparent distress, Oriented x3, Cooperative HEENT: Atraumatic, Normocephalic, PERRLA, Mucous membr. moist/pink, Sclerae nonicteric Neck: Supple, 2+ carotid pulse no bruit, JVD not distended, No LAD, Without JVD or thyroid abnormality Respiratory: Other (Mild coarse scattered crackles bilateral.) Cardiovascular: Normal pulses, Normal S1 S2, No gallops, No rubs, No murmurs, Edema (edema bilateral lower extremities.) Capillary refill: <2 Seconds Gastrointestinal: Normal bowel sounds, Soft and benign, Non-distended, W/out hepatomegaly, No ascites, No tenderness, No masses, No rebound, No guarding Musculoskeletal: No clubbing, No contractures, No erythema, No tenderness, No warmth Integumentary: No rashes, No breakdown, No significant lesion, No te nderness/swelling, No erythema, No warmth, No cyanosis Neurological: Normal speech, Normal strength at 5/5 x4 extr, Normal tone, Sensation intact, Cranial nerves 3-12 intact, Normal reflexes 2+, Normal affect Lymphatics: No axilla or inguinal lymphadenopathy - Studies Laboratory Data (last 24 hrs) 04/12/25 04/12/25 04/12/25 15:28 15:28 15:28 WBC 9.80 Hgb 10.6 L Hct 31.9 L Plt Count 221 PT 12.1 INR 1.07 Sodium 139 Potassium 4.0 BUN 29 H Creatinine 2.58 H Glucose 74 Magnesium 1.6 Total Bilirubin 0.6 AST 19 ALT 19 Alkaline Phosphatase 50 Male Exam - Male Exam Inguinal exam: No hernias Assessment and Plan - Plan Patient is a pleasant 75-year-old male sent to the ER by his PCP due to tachycardia with no associated chest pain or shortness of breath. (1)Paroxysmal tachycardia. Patient initial heart rate was in the 130s to 150s. Started on amiodarone drip. -Continue amiodarone drip now on maintenance dose after receiving bolus, and 6 hours infusion in ER. -Consult stage rigger. -Order echocardiogram. (2)CAP-questionable. Patient chest x-ray impression: hazy right central lung opacities could reflect pneumonia. Patient has a left shift 84.9, also complaining of nonproductive cough, no fever or chills, complains of body weakness. - Started on ceftriaxone 1 g IV daily. -Azithromycin 500 mg IV daily. -Follow-up CBC a.m. (3)Chronic sleep apnea. Patient states he was diagnosed with sleep apnea, recommended CPAP but patient states he refused. Patient sleep apnea and currently not using CPAP at bedtime, may be contributing to some of his cardiac symptoms. -Ordered patient CPAP at night. Also educated and explained to the patient the importance of using CPAP when having sleep apnea, the effect to the heart, and his blood pressure, and voiced understanding. Explained the entire treatment plan to the patient, solicited questions answered and voiced understanding. (4)Chronic BPH. - Continue home medication tamsulosin 0.4 mg p.o. at bedtime. (5)DVT prophylaxis. - Heparin 5K units SQ every 8 hours. (6) chronic kidney disease stage III. - Consult talent agent , currently seeing outpatient. (7)Patient home medications to be resumed when reconciled. Discharge Plan: Home Plan to discharge in: 72 Hours - Advance Directives Does patient have a Living Will: No Does patient have a Durable POA for Healthcare: No - Code Status/Comfort Care Code Status Assessed: Yes Code Status: Full Code Critical Care: No Time Spent Managing Pts Care (In Minutes): 55
[2025-04-12] MEDS ORDERED: AMIODARONE IN DEXTROSE,ISO-OSM 360 MG/200 ML BAG IV SCH (21:45)
[2025-04-12 22:06] VITALS: O2SAT 99; BMI 24.2
[2025-04-12] MEDS: AMIODARONE IN DEXTROSE,ISO-OSM 360 MG/200 ML BAG IV ONE (22:24)
[2025-04-13] MEDS: HEPARIN 5000 UNIT/ML 1 ML VIAL SQ SCH (00:15)
[2025-04-13] MEDS: CEFTRIAXONE 1,000 MG in NA CHLORIDE 0.9% 50 ML IVPB ONE (00:38)
[2025-04-13 05:18] LABS: Absolute Lymphocytes (CBC) 0.9 K/uL (0.7-4.9); Hematocrit 26.4 % (39.6-49.0); Hemoglobin 9.0 g/dL (13.6-17.9); MCH 30.4 pg (27.0-35.0); MCHC 34.0 g/dL (32.0-36.0); MCV 89.3 fL (80-100); MPV 8.4 fL (7.6-11.3); Nucleated RBC Absolute Count 0.0 (0-0); Nucleated Red Blood Cells % 0.0 % (0-0); RBC Red Blood Cell Count 2.95 M/uL (4.33-5.43); White Blood Count 5.90 thou/uL (4.3-10.9)
[2025-04-13 05:37] LABS: Albumin 2.8 g/dL (3.4-5.0); Albumin/Globulin Ratio 0.9 (1.1-1.8); Alkaline Phosphatase 38 U/L (45-117); Anion Gap 8.7 mEq/L (5.0-15.0); BUN Blood Urea Nitrogen 29 mg/dL (7-18); Globulin 3.0 g/dL (2.3-3.5); Glucose Level 98 mg/dL (74-106); Magnesium 1.7 mg/dL (1.6-2.4); Potassium 3.7 mEq/L (3.5-5.1)
[2025-04-13 05:40] LABS: ALT/SGPT < 14 U/L (16-61); AST/SGOT < 10 U/L (15-37)
[2025-04-13] MEDS: PANTOPRAZOLE 40MG TABLET PO SCH (05:53)
[2025-04-13] MEDS: MAGNESIUM SULFATE 1 gm IVPB 1 GM/100 ML BAG IV ONE (08:28)
[2025-04-13] MEDS: AZITHROMYCIN IV 500 MG in NA CHLORIDE 0.9% 250 ML IVPB SCH (08:28)
[2025-04-13] MEDS: POTASSIUM CL SA 10 MEQ TAB PO ONE (08:29)
[2025-04-13] MEDS ORDERED: AMIODARONE HCL 900 MG in Dextrose 5%-Water 482 ML IV SCH (10:00)
[2025-04-13] MEDS: MAGNESIUM OXIDE 400 MG TAB PO SCH (11:00)
--- NOTE | 2025-04-13 11:04 | P.CNS ---
Date of Consult: 04/13/25 Reason for Consult: CKD IV Requesting Physician: Daniel Sifuentes Chief Complaint: Paroxysmal tachycardia, pneumonia questionable. History of Present Illness: Pt is a 75 yo AAM with a hx of chronic HTN, CKD IV long standing followed by Dr. Rodas who was reportedly referred to the ER for SVT by his Legal Compliance Officer, he did acknowledge some dyspnea which is now improved. CXR did show some lung opacities. He acknowledges some mild cough. He reported inadvertently missing diuretics doses over the prior several days and had developed some mild LE edema. Allergies No Known Allergies Allergy (Verified 03/28/24 08:40) Home Medications: Amlodipine Besylate [Norvasc] 5 mg PO DAILY 03/04/16 allopurinoL [Allopurinol] 100 mg PO DAILY 03/04/16 Cholecalciferol (Vitamin D3) [Vitamin D3] 1 cap PO DAILY 05/21/22 Furosemide 20 mg PO DAILY 05/21/22 Gabapentin 100 mg PO DAILY 05/21/22 Tamsulosin [Flomax] 0.8 mg PO BEDTIME 05/11/23 Fluticasone Propionate 50 mcg IN DAILY 12/17/23 Montelukast [Singulair*] 10 mg PO DAILY 12/17/23 Omeprazole [Prilosec] 40 mg PO DAILY 12/17/23 Sodium Bicarbonate 650 mg PO BID 12/17/23 Tramadol HCl [Ultram] 50 mg PO Q6HR PRN 05/05/24 Ferrous Fumarate/Ascorbic Acid [Jacob-Sequels 65-25 mg Caplet] 1 tab PO TID 04/12/25 - Past Medical/Surgical History Diabetic: Yes -: DM -: HTN -: ENLARGED PROSTATE -: GERD -: CKD IV followed by Dr. Rodas/Radha -: ANGIOPLASTY - Social History Smoking Status: Former smoker Alcohol use: Yes CD- Drugs: No Caffeine use: Yes Place of Residence: Home Review of Systems General: As per HPI Eyes: Unremarkable ENT: Unremarkable Respiratory: Cough, Shortness of Breath Cardiovascular: Palpitations, As per HPI Gastrointestinal: Unremarkable Genitourinary: Unremarkable Musculoskeletal: Pedal edema Integumentary: Unremarkable Neurological: Unremarkable Lymphatics: Unremarkable Physical Examination Temp Pulse Resp BP Pulse Ox 97.6 F 65 16 141/78 H 99 04/13/25 08:00 04/13/25 08:00 04/13/25 08:00 04/13/25 08:00 04/13/25 08:00 General: Alert, In no apparent distress, Cooperative HEENT: Atraumatic, Normocephalic, Other (not needing O2) Neck: Supple Respiratory: Normal air movement, Other (no rales or rhonchi) Cardiovascular: No edema, Regular rate/rhythm Gastrointestinal: Soft and benign, Non-distended, No tenderness Musculoskeletal: No swelling, No contractures Integumentary: No rashes Neurological: Normal speech, Normal tone Laboratory Data (last 24 hrs) 04/12/25 04/12/25 04/12/25 15:28 15:28 15:28 WBC 9.80 Hgb 10.6 L Hct 31.9 L Plt Count 221 PT 12.1 INR 1.07 Sodium 139 Potassium 4.0 BUN 29 H Creatinine 2.58 H Glucose 74 Magnesium 1.6 Total Bilirubin 0.6 AST 19 ALT 19 Alkaline Phosphatase 50 Conclusions/Impression: A/P) 1. Long standing CKD Stage IV 2nd to hypertensive nephrosclerosis, other. Renal sizes on prior u/s on the smaller side, no obstructive uropathy on prior imaging. 2. Current renal function tests at or better than baseline range 3. Dyspnea 2nd to tachycardia and possible cardiogenic pulm edema vs atypical pneumonitis -clinically stable, management per IM 4. Elevated BNP, SVT, other. Resume maintenance lasix. Keep K 4.0 or higher, keep Mg 2.0 or higher, will place on scheduled supplements at lower dose Monitor BP range closely. Rate controlling agents per Cardiology 5. Anemia of CKD, other -reports missing OP NADIYA dose recently, will order Retacrit here.
[2025-04-13] MEDS: EPOETIN ALFA-EPBX 10,000 UNIT/ML VIAL SQ SCH (11:31)
[2025-04-13] MEDS: FUROSEMIDE 20 MG TABLET PO SCH (11:31)
--- NOTE | 2025-04-13 13:06 | P.CNS ---
Date of Consult: 04/13/25 Chief Complaint: Paroxysmal tachycardia, pneumonia questionable. History of Present Illness: Patient was seen in cardiology office and he was in AF w RVR, report palpitations, denies chest pain, no syncope, no breathing problems. Allergies No Known Allergies Allergy (Verified 03/28/24 08:40) Home medications list reviewed: Yes Home Medications: Amlodipine Besylate [Norvasc] 5 mg PO DAILY 03/04/16 allopurinoL [Allopurinol] 100 mg PO DAILY 03/04/16 Cholecalciferol (Vitamin D3) [Vitamin D3] 1 cap PO DAILY 05/21/22 Furosemide 20 mg PO DAILY 05/21/22 Gabapentin 100 mg PO DAILY 05/21/22 Tamsulosin [Flomax] 0.8 mg PO BEDTIME 05/11/23 Fluticasone Propionate 50 mcg IN DAILY 12/17/23 Montelukast [Singulair*] 10 mg PO DAILY 12/17/23 Omeprazole [Prilosec] 40 mg PO DAILY 12/17/23 Sodium Bicarbonate 650 mg PO BID 12/17/23 Tramadol HCl [Ultram] 50 mg PO Q6HR PRN 05/05/24 Ferrous Fumarate/Ascorbic Acid [Jacob-Sequels 65-25 mg Caplet] 1 tab PO TID 04/12/25 - Past Medical/Surgical History Diabetic: Yes -: DM -: HTN -: ENLARGED PROSTATE -: GERD -: CKD IV followed by Dr. Rodas/Radha -: ANGIOPLASTY - Social History Smoking Status: Former smoker Alcohol use: Yes CD- Drugs: No Caffeine use: Yes Place of Residence: Home Review of Systems 10-point ROS is otherwise unremarkable Physical Examination Temp Pulse Resp BP Pulse Ox 97.6 F 65 16 141/78 H 99 04/13/25 08:00 04/13/25 11:31 04/13/25 08:00 04/13/25 11:31 04/13/25 08:00 General: Alert, In no apparent distress HEENT: Atraumatic, PERRLA, Mucous membr. moist/pink, EOMI, Sclerae nonicteric Neck: Supple, 2+ carotid pulse no bruit, No LAD, Without JVD or thyroid abnormality Respiratory: Clear to auscultation bilaterally, Normal air movement Cardiovascular: Regular rate/rhythm, Normal S1 S2 Gastrointestinal: Normal bowel sounds, No tenderness Musculoskeletal: No tenderness Integumentary: No rashes Neurological: Normal gait, Normal speech, Normal tone, Normal affect Lymphatics: No axilla or inguinal lymphadenopathy Laboratory Data (last 24 hrs) 04/12/25 04/12/25 04/12/25 15:28 15:28 15:28 WBC 9.80 Hgb 10.6 L Hct 31.9 L Plt Count 221 PT 12.1 INR 1.07 Sodium 139 Potassium 4.0 BUN 29 H Creatinine 2.58 H Glucose 74 Magnesium 1.6 Total Bilirubin 0.6 AST 19 ALT 19 Alkaline Phosphatase 50 - Problems (1) Atrial fibrillation Current Visit: Yes Status: Acute Plan: patient is currently in sinus rhythm start Amiodarone 200 mg po BID start Eliquis 2.5 mg po BID Patient can go home and follow up with cardiology as outpatient. (2) HTN (hypertension) Current Visit: Yes Status: Acute Plan: continue patient home medications
[2025-04-13 17:44] VITALS: BP 140/80; TEMP 98.1
[2025-04-13] MEDS ORDERED: DOXYCYCLINE 100 MG CAP PO SCH (21:00)
[2025-04-13] MEDS ORDERED: TAMSULOSIN 0.4 MG SR CAP PO SCH (21:00)
[2025-04-13] MEDS ORDERED: CEFTRIAXONE 1,000 MG in NA CHLORIDE 0.9% 50 ML IVPB SCH (23:00)
[2025-04-14] MEDS ORDERED: POTASSIUM CL SA 10 MEQ TAB PO SCH (09:00)
== END 2025-04-13 18:31 | disposition home or self-care (01) ==
LOC: ER 14:43 → ERHOLD 21:27 → 4TH 21:52
PROVIDERS: ADMIT Hospitalist; ATTEND Hospitalist
DX: I47.9 Paroxysmal tachycardia, unspecified (principal); R00.2 Palpitations; E11.22 Type 2 diabetes mellitus with diabetic chronic kidney disease; I12.9 Hypertensive chronic kidney disease with stage 1 through stage 4 chronic kidney disease, or unspecified chronic kidney disease; N18.4 Chronic kidney disease, stage 4 (severe); E78.00 Pure hypercholesterolemia, unspecified; N40.0 Benign prostatic hyperplasia without lower urinary tract symptoms; M10.9 Gout, unspecified; G47.30 Sleep apnea, unspecified; R06.00 Dyspnea, unspecified; D63.1 Anemia in chronic kidney disease; I50.40 Unspecified combined systolic (congestive) and diastolic (congestive) heart failure; Z11.52 Encounter for screening for COVID-19
CPT/HCPCS: 36415; 71045; 71250; 80048; 80053; 80076; 81001; 82947; 83036; 83605; 83735; 83880; 84484; 85025; 85610; 87040; 87428; 93005; 93306; 99285; J0282; J0456; J0696; J1644; J2543; J3475; J7050; Q5106